=== PATIENT | male | born 1985 | race Hispanic/Latino ===

== ENCOUNTER → 2016-07-22 | Outpatient (CLI) | payer MEDICAID ==
[2016-07-26 14:11] LABS: VITAMIN B2 (RIBOFLAVIN) 240 ug/L (137-370)
== END ==
LOC: M LAB 07:29
PROVIDERS: ATTEND Nurse Practitioner Family
DX: D64.9 Anemia, unspecified (principal)

== ENCOUNTER → 2016-11-16 | Outpatient (CLI) | payer MEDICAID, OTHER | LOC: M LAB 13:07 | PROVIDERS: ATTEND Nurse Practitioner Family | DX: R76.12 Nonspecific reaction to cell mediated immunity measurement of gamma interferon antigen response without active tuberculosis (principal) ==

== ENCOUNTER → 2016-11-23 | Outpatient (CLI) | payer OTHER ==
--- NOTE | 2016-11-23 14:54 | REP ---
Clinical: Positive PPD test . Comparison: None . Technique: PA and lateral. Findings: The mediastinum and cardiac silhouette are normal. The lung pop are clear and without acute consolidation, effusion, or pneumothorax. The skeletal structures are intact and normal. Impression: 1. No acute cardiopulmonary process. Signed by Stefan Bartlett MD 11/23/2016 02:45 P
[2016-11-23 15:39] LABS: FREE T4 0.98 NG/DL (0.76-1.46)
== END ==
LOC: M LAB 13:54
PROVIDERS: ATTEND Nurse Practitioner Family
DX: R76.11 Nonspecific reaction to tuberculin skin test without active tuberculosis (principal)

== ENCOUNTER 2017-02-22 16:08 | Inpatient (IN) | payer OTHER ==
[~2017-02-22] VITALS: Ht 170.2 cm; Wt 80.9 kg
[2017-02-22] MEDS ORDERED: ONDANSETRON 4MG/2ML VIAL (J2405) IV ONE (16:45)
[2017-02-22] MEDS ORDERED: NS 1,000 ML IV ONE ×2 (16:45→20:00)
[2017-02-22] MEDS ORDERED: PANTOPRAZOLE 40MG INJ (PROTONIX) (C9113) IV ONE (16:45)
[2017-02-22] MEDS: MORPHINE 4 MG/ML 1ML SYRINGE IV PRN ×2 (16:59→17:41)
[2017-02-22 17:31] LABS: ALBUMIN 3.8 GM/DL (3.2-5.2); ALBUMIN/GLOBULIN RATIO 1.09 (1.00-1.93); ALKALINE PHOSPHATASE 127 U/L (45-117); ALT/SGPT 87 U/L (12-78); ANION GAP 28 MEQ/L (8-16); AST/SGOT 67 U/L (15-37); BILIRUBIN,DIRECT 0.2 MG/DL (0.0-0.2); BLOOD UREA NITROGEN 19 MG/DL (7-18); CALCIUM LEVEL 7.9 MG/DL (8.5-10.1); CARBON DIOXIDE LEVEL 10 MEQ/L (21-32); CHLORIDE LEVEL 97 MEQ/L (98-107); CREATININE FOR GFR 1.24 MG/DL (0.70-1.30); GLOMERULAR FILTRATION RATE > 60.0 (>60); GLUCOSE, FASTING 191 MG/DL (70-105); POTASSIUM SERUM 3.5 MEQ/L (3.5-5.1); SODIUM LEVEL 135 MEQ/L (136-145); TOTAL PROTEIN 7.3 GM/DL (6.4-8.2)
[2017-02-22 17:51] LABS: BASO # 0.1 K/mm3 (0.0-0.2); BASO % 0.2 % (0.0-1.0); EOS % 0.1 % (0.0-3.0); LARGE UNSTAINED CELL # 0.1 K/mm3 (0.0-0.4); LARGE UNSTAINED CELL % 0.3 % (0.0-4.0); LYMPH # 1.1 K/mm3 (1.5-4.5); LYMPH % 3.2 % (24.0-44.0); MEAN CORPUSCULAR HEMOGLOBIN 29.6 pg (27.0-33.0); MEAN CORPUSCULAR HGB CONC 35.3 g/dl (32.0-36.5); MEAN CORPUSCULAR VOLUME 83.9 fl (80.0-96.0); MONO # 0.9 K/mm3 (0.0-0.8); MONO % 2.7 % (0.0-5.0); NEUTROPHILS # 30.2 K/mm3 (1.8-7.7); NEUTROPHILS % 93.6 % (36.0-66.0); PLATELET COUNT, AUTOMATED 259 k/mm3 (150-450); RED CELL DISTRIBUTION WIDTH 13.1 % (11.5-14.5)
[2017-02-22 17:53] LABS: WHITE BLOOD COUNT 32.2 K/mm3 (4.0-10.0)
[2017-02-22] MEDS ORDERED: NS 1,000 ML IV SCH (18:00)
[2017-02-22] MEDS ORDERED: ISOVUE-370 76% 100ML VIAL (Q9967) As Ordered ONE (18:04)
[2017-02-22] MEDS ORDERED: LORazepam 2 MG/ML VIAL (J2060) IV STA (18:27)
[2017-02-22] MEDS ORDERED: NS 2,290 ML in APPROPRIATE DILUENT 1 EA IV ONE (18:30)
[2017-02-22] MEDS ORDERED: CEFEPIME HCL 2 GM in D5W MINI-BAG PLUS 50 ML IV ONE (18:30)
[2017-02-22 18:32] LABS: ABG BASE EXCESS -10.9 (-2.0-2.0); ABG HCO3 11.6 MEQ/L (22.0-26.0); ABG PARTIAL PRESSURE CO2 20.5 mmHg (35.0-45.0); ABG PARTIAL PRESSURE O2 111.1 mmHg (75.0-100.0); ABG STANDARD HCO3 16.2 MEQ/L (22.0-26.0); ABG TOTAL CO2 12.2 MEQ/L (22.0-29.0)
[2017-02-22] MEDS: HYDROmorphone HCL 1 MG/ML SYRINGE (J1170) IV PRN ×3 (18:34→22:35)
--- NOTE | 2017-02-22 19:11 | REP ---
REASON: Abdominal pain. Supine and cross table lateral views were obtained. There are a few gas filled mildly dilated small bowel loops in the abdomen. There is no free air seen on the single cross table lateral view. The accompanying frontal view of the chest shows no acute disease or significant change from 11/23/2016. IMPRESSION: Small bowel ileus is suspected. Signed by Jack Borjas DO 02/22/2017 07:51 P
[2017-02-22] MEDS: NS 1,000 ML IV SCH (19:14)
[2017-02-22] MEDS ORDERED: ONDANSETRON 4MG/2ML VIAL (J2405) IV PRN (19:15)
--- NOTE | 2017-02-22 19:18 | REP ---
HISTORY: Diffuse abdominal pain. COMPARISON: None. CONTRAST: 100 mL [id number]. The lung bases are clear. There is diffuse low density seen throughout the hepatic parenchyma. There is fluid in the lesser sac and in the anterior pararenal space. The margins of the pancreas are obscured. There is fluid in the paracolic gutters along with thickening of Gerota's and Zuckerkandl's fascia. There is fluid trapped in the leaves of the small bowel mesentery. The spleen, adrenal glands and kidneys are within normal limits. The abdominal aorta and paraaortic regions are within normal limits. There is no evidence of free intraperitoneal air. There are multiple fluid filled small bowel loops in the abdomen, which are dilated. CT pelvis: There is free fluid in the pelvis. There is no free air. The bowel loops are within normal limits. There is no pelvic mass or adenopathy. Bone window technique throughout the examination shows the osseous structures to be within normal limits. IMPRESSION: 1. There is pancreatitis with related findings as described above. 2. There is a small bowel ileus. 3. There is diffuse fatty infiltration of the liver. Signed by Jack Borjas DO 02/22/2017 07:51 P
[2017-02-22] MEDS ORDERED: HYDROmorphone HCL 1 MG/ML SYRINGE (J1170) IV PRN (19:30)
[2017-02-22 19:48] LABS: AMYLASE 166 U/L (25-115)
[2017-02-22 20:02] LABS: INR 1.52
[2017-02-22] MEDS: OXAZEPAM 10 MG CAP PO SCH (20:14)
--- NOTE | 2017-02-22 20:41 | ECGEPIP ---
Stationary ECG Study [facility] - ED Test Date: 2017-02-22 Pat Name: ASH MOLINA Department: Room: - Gender: M [employer] Operator: JamesB: 1985 Requested By: Davie Ramirez Order Number: [id number] Reading MD: Davie Jean-Baptiste Measurements Intervals [place] Rate: 143 P: 44 DE: 139 QRS: 116 QRSD: 85 T: 13 QT: 295 QTc: 456 Interpretive Statements SINUS TACHYCARDIA LEFT POSTERIOR FASCICULAR BLOCK NO PRIORS Electronically Signed On 02-22-2017 20:41:28 EDT by Davie Jean-Baptiste
[2017-02-22 20:45] VITALS: BP 159/93
[2017-02-22] MEDS ORDERED: SODIUM CHLORIDE 0.9% 1000 ML IV ONE (21:00)
[2017-02-22] MEDS ORDERED: MULTIVITAMIN -ADULT INJECTION 10 ML, THIAMINE INJection 100 MG, FOLIC ACID 1 MG in NS 1... IV ONE (21:00)
[2017-02-22 21:49] LABS: MAGNESIUM LEVEL 1.7 MG/DL (1.8-2.4)
--- NOTE | 2017-02-22 21:49 | HPE ---
DATE OF ADMISSION: 02/22/2017 Mr. Reed is a patient of [facility]. CHIEF COMPLAINT: "I had a relapse." The following is a summary of his presentation: This is a 31-year-old who had been absent of alcohol for at least a year and 7 months since he has been in [place]. For reasons that he cannot exactly describe, he has been on a 1 week morrissey with vodka, drinking what he calls "an ungodly amount." His last drink today was around 2 p.m. He feels tremulous and weak. He has had withdrawal before and has been hospitalized. He has no known history of seizures. His last admission for withdrawal was at [facility] in [place], [place]. He also has a history of pancreatitis and he has had severe abdominal pain which started 3 days ago and felt like he had a hole in his stomach where he was being beaten. He has had nausea, he is vomiting, he has vomited in the hospital as well, he has vomited since the CT scan. He has had chills. He feels short of breath. He feels as though there is pressure on his chest. He has had no diarrhea. He says he has not eaten anything solid in a week. PAST MEDICAL HISTORY: Notable for alcohol addiction. SURGICAL HISTORY: Notable for bilateral foot repair and right shoulder surgery after a trauma remotely. He takes no medications every day. ALLERGIES: He has no known drug allergies. FAMILY HISTORY: Unknown because he was adopted. Socially, he is originally from [place]. He has been in this area for 1 year and 7 months with 5minutes, trying to turn his life around. He does not smoke tobacco. He does not use IV drugs. REVIEW OF SYSTEMS: Notable for nausea, vomiting, chills, shortness of breath. He is not describing a cough. Abdominal pain is described. No known history of seizure. Otherwise unremarkable. PHYSICAL EXAMINATION: Temperature 98.1, pulse 114, respiratory rate 20, blood pressure 134/76, 98% on room air. Weight is 76.3 kg with a body mass index of 26.4. He is awake, appropriately interactive, appears uncomfortable and somewhat slow in his speech as he has just received some Dilaudid and Ativan. Head is normocephalic. Sinuses nontender. Pupils equal, round, and reactive, anicteric. There is scleral injection. Nasal septum is midline. Mucous membranes are moist. There is a small abrasion midline in the lower lip. Neck is supple. No cervical or supraclavicular adenopathy. Breathing is symmetrical, somewhat diminished in the bases. I:E ratio is 1:3. No costovertebral angle (CVA) tenderness. No sacral edema. Heart is distant sounding, normal S1, S2, is tachycardic on my exam with a rate between 100-110. Radial pulses are 2+. Capillary refill is less than 2 seconds. Abdomen is somewhat distended and firm, but still soft. Hypoactive bowel sounds. Diffuse tenderness without rebound or guarding. No lower extremity edema. He is moving all four extremities. He appears anxious and slightly tremulous. White cell count is 32.2, hemoglobin 18.4, and platelets of 259. Sodium 135, potassium 3.5, chloride 97, carbon dioxide 10, anion gap of 28, BUN 19, creatinine 1.24, fasting glucose 191, lactic acid 7. There are no urines available for me to review at this time. AST is 67, ALT is 87, alkaline phosphatase is 127, lipase is 1934. pH 7.37, pCO2 is 20, pO2 is 111, bicarbonate is 11. Alcohol level is 0.07. CT scan of the abdomen and pelvis as read by radiology shows pancreatitis without evidence of obvious abscess. There is no free intraperitoneal air. There is fluid noted. In review of the CT scan personally, it would appear as though there is a small area of decreased air filling on the right in the base and the stomach looks distended with fluid so a nasogastric (NG) tube will be placed. My assessment is as follows: This is a 31-year-old with recurrent alcoholic pancreatitis and alcohol withdrawal. Patient will require at least a two midnight hospital stay and close monitoring. Plan will be as follows: 1. Pancreatitis. This would appear to be recurrent alcoholic pancreatitis. My suspicion for gallstone pancreatitis is exceedingly low. His liver function tests (LFTs) are only minimally elevated. There is no evidence of obvious abscess, but there is obviously advanced pancreatitis which is recurrent on the CT scan. The patient will be made nothing by mouth and placed on IV fluids and I have started empiric antibiotics which can be discontinued if he improves or if there are no signs or symptoms of localizing infection. Choosing ceftazidime to cover a broad-spectrum of possible pathogens. Urine is still pending which will likely be unremarkable, but will likely show ketosis. 2. The patient has lactic acidosis with an anion gap. He has denied any injections. This most likely represents his ketotic and lactic acidotic state. Will repeat labs in 6 hours after hydration along with a repeat lactic acid level to look at the anion gap. 3. The patient has evidence of alcohol withdrawal and has gone through withdrawal before. Will use Serax and Ativan together in the setting of use of opiates for pain management. The patient will have an acoustic monitor placed. He does not give a history suggestive of obstructive sleep apnea, but the combination of opiates and benzodiazepines does, of course, come with some risks, but is necessary in this clinical setting. 4. The patient has mechanical deep venous thrombosis (DVT) prophylaxis ordered. 5. The patient has hyponatremia. Repeat labs in the morning. 6. The patient has ongoing alcohol addiction recurrence. Will likely benefit from further treatment as an outpatient or perhaps as an inpatient. Social work consult is ordered.
[2017-02-22 23:32] LABS: ANION GAP 13 MEQ/L (8-16); BLOOD UREA NITROGEN 16 MG/DL (7-18); CALCIUM LEVEL 6.4 MG/DL (8.5-10.1); CARBON DIOXIDE LEVEL 18 MEQ/L (21-32); CHLORIDE LEVEL 106 MEQ/L (98-107); CREATININE FOR GFR 1.07 MG/DL (0.70-1.30); GLOMERULAR FILTRATION RATE > 60.0 (>60); GLUCOSE, FASTING 149 MG/DL (70-105); POTASSIUM SERUM 4.4 MEQ/L (3.5-5.1); SODIUM LEVEL 137 MEQ/L (136-145)
[2017-02-23] VITALS (11 sets, daily range): BP systolic 127–141; BP diastolic 73–91; O2SAT 96–97
[2017-02-23] MEDS ORDERED: MAG SULF 1GM/100ML (MAG RUN) 1 GM in APPROPRIATE DILUENT 1 EA IV ONE ×2
[2017-02-23] MEDS: OXAZEPAM 10 MG CAP PO SCH ×3 (00:24→11:00)
[2017-02-23] MEDS: HEPARIN SOD (PORCINE) 5000 UNITS/ML VIAL SQ SCH ×4 (00:25→22:16)
[2017-02-23] MEDS: HYDROmorphone HCL 1 MG/ML SYRINGE (J1170) IV PRN ×5 (01:48→22:16)
[2017-02-23] MEDS: cefTAZidime 1 GM in D5W MINI-BAG PLUS 100 ML IV SCH ×3 (02:43→17:59)
[2017-02-23] MEDS: NS 1,000 ML IV SCH ×4 (02:43→23:14)
[2017-02-23 05:58] LABS: ADD MANUAL DIFFER YES; DIFF SLIDE NUMBER 93; MEAN CORPUSCULAR HEMOGLOBIN 29.7 pg (27.0-33.0); MEAN CORPUSCULAR HGB CONC 34.4 g/dl (32.0-36.5); MEAN CORPUSCULAR VOLUME 86.3 fl (80.0-96.0); RED CELL DISTRIBUTION WIDTH 13.4 % (11.5-14.5); WHITE BLOOD COUNT 23.1 K/mm3 (4.0-10.0)
[2017-02-23 06:22] LABS: ALBUMIN 2.9 GM/DL (3.2-5.2); ALBUMIN/GLOBULIN RATIO 1.07 (1.00-1.93); ALKALINE PHOSPHATASE 93 U/L (45-117); ALT/SGPT 59 U/L (12-78); ANION GAP 14 MEQ/L (8-16); AST/SGOT 50 U/L (15-37); BILIRUBIN,TOTAL 1.4 MG/DL (0.2-1.0); BLOOD UREA NITROGEN 15 MG/DL (7-18); CALCIUM LEVEL 6.7 MG/DL (8.5-10.1); CARBON DIOXIDE LEVEL 18 MEQ/L (21-32); CHLORIDE LEVEL 107 MEQ/L (98-107); CREATININE FOR GFR 0.94 MG/DL (0.70-1.30); GLOMERULAR FILTRATION RATE > 60.0 (>60); GLUCOSE, FASTING 138 MG/DL (70-105); MAGNESIUM LEVEL 2.1 MG/DL (1.8-2.4); POTASSIUM SERUM 4.2 MEQ/L (3.5-5.1); SODIUM LEVEL 139 MEQ/L (136-145); TOTAL PROTEIN 5.6 GM/DL (6.4-8.2)
[2017-02-23 06:39] LABS: BASOPHILS 1 % (0-4)
[2017-02-23 06:40] LABS: PLATELET CLUMPS MODERATE AMT
[2017-02-23] MEDS: MORPHINE 2 MG/ML 1ML SYRINGE IV PRN ×3 (07:21→17:11)
--- NOTE | 2017-02-23 07:45 | HPE ---
DATE OF ADMISSION: 02/22/2017 Time patient was seen was at roughly 2100 ours. PRIMARY CARE PROVIDER: JEREMY Millard at [facility]. CHIEF COMPLAINT: Severe abdominal pain. 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 Per the patient, he started drinking again seven days ago and relapsed on alcohol and for the past three days he has been having severe bandlike pain around the abdomen that was sharp and constant, worse with food. He stated he vomits at least 10 times a day, which was green, brown and black, and he has not been eating much for the past one week. Also admits to fever and chills today. In addition, he also admits to chest pressure that was in the center of the chest and constant, associated with shortness of breath. Per the patient, he has not had this before. Otherwise, denies any diarrhea or constipation. ALLERGIES: The patient stated he is allergic to ALCOHOL, which makes him sick. HOME MEDICATIONS: Not on any home medications. PAST MEDICAL HISTORY: Includes: Drug abuse, which the patient stated that he quit for a year. Alcoholism. He had a recent relapse. History of pancreatitis. History of TB, which was treated 10 years ago. PAST SURGICAL HISTORY: Patient had a right shoulder repair and also bilateral foot surgery. SOCIAL HISTORY: Patient denies any smoking. Admits to drinking. Denies any recreational drugs. The patient lives by himself. FAMILY HISTORY: Patient stated he is adopted and he does not know. REVIEW OF SYSTEMS: GENERAL: Denies any recent traveling or sick contacts, admits to fever and chills. Denies any weight changes. HEENT: Denies any changes with vision, smell, hearing or taste. Denies any trouble swallowing. CARDIOVASCULAR: Admits to chest pressure and shortness of breath. PULMONARY: Admits to shortness of breath. Denies any pulmonary disease. GASTROINTESTINAL (GI): Admits to severe abdominal pains with nausea and vomiting. Denies any diarrhea or constipation. Denies any blood in the vomiting. MUSCULOSKELETAL: Admits to severe aching and tired body. ENDOCRINE: Denies any heat or cold intolerance. Denies any polydipsia or polyuria. HEM/ONC: Denies any ease of bruising or any bleeding anywhere. SKIN: Denies any ulcers, lumps or bumps. NEURO: Denies any weakness on any side of his body. PSYCH: Admits to anxiety. Patient states it was severe. PHYSICAL EXAMINATION: VITAL SIGNS: Temperature 98.1, pulse 72, respirations 18, blood pressure 136/73 , oxygen was saturating at 99% on room air. GENERAL: Patient is a well-developed, well-nourished young male, who was alert, awake and oriented times three. Appears to be mildly distressed, lying comfortably in bed with head elevated at 60 degrees. HEENT: Normocephalic, atraumatic. Extraocular motors intact. Mucous moist. NECK: Supple. No neck lymphadenopathy. CARDIOVASCULAR: Tachycardic. Normal S1 and S2. No murmurs. LUNGS: Clear to auscultation bilaterally. No wheezing, rales or rhonchi. ABDOMEN: Positive bowel sounds. Soft, diffusely tender to palpation in the entire abdomen; however, no rebound tenderness, no rigidity. No ecchymosis. EXTREMITIES: No edema, clubbing or cyanosis. SKIN: Warm and dry. NEURO: Cranial nerves II through XII intact. No focal neurologic deficit. LABORATORIES: WBC 32.2, hemoglobin was 18.4, hematocrit 52.3 with a platelet count of 259 and MCV of 83.9. Sodium 135, potassium 3.5, chloride 97, bicarb 10, anion gap was 28, BUN was 19, creatinine 124, GFR greater than 60, fasting glucose 191, lactic acid was 7. Lactic acid 4 hours later was 3. Calcium 7.9, magnesium 1.7, total bilirubin 1, direct bilirubin 0.2, AST 67, ALT 87, alkaline phosphatase was 127, total CK 347 , CK-MB 2.4, Troponin less than 0.02, CRP was 5.93, total protein 7.3, albumin 3.8 , amylase 166, lipase 1934. The patient's repeat basic metabolic panel is pending. Coags shows PT of 18.7, INR 1.52, PTT 29.8. ABG shows pH of 7.37, pCO2 20.5, pO2 111, saturation was 97.6% on room air with a base excess of -10.9. Urinalysis shows 2+ protein, 2+ glucose, 1+ ketones, 1+ blood, 4+ RBC, 1+ bacteria. Toxicology shows alcohol 0.07. Hepatitis panel is pending. Blood cultures times three are pending. Urine culture is pending. The patient had an abdominal x-ray that shows a small bowel ileus suspected. Patient had a CT of the abdomen and pelvis, which shows pancreatitis related findings and a small bowel ileus. There is diffuse fatty infiltrate of the liver. ASSESSMENT/PLAN: 31-year-old male with a past medical history of pancreatitis, alcoholism, drug abuse, history of treated TB who presented with: 1. Severe abdominal pain with nausea and vomiting, likely secondary to recurrent alcohol related pancreatitis. However, the patient does have an elevated white count of 32.2, likely related to his severe nausea and vomiting. Will place the patient on NG tube to low intermittent suction and nothing by mouth, IV fluids. Patient has been ordered 4 liters of normal saline including a banana bag and will continue the patient on normal saline at a rate of 150 mL per hour. Will continue to trend the patient's lipase and trend the patient's lactic acid and start on empiric antibiotics with ceftazidime 1 gram IV every 8 hours for now and will adjust the antibiotic according to culture. Continue to monitor for signs of alcohol withdraw and Continue Serax prn for withdraw symptoms. 2. Small bowel ileus shown on CT, likely related to pancreatitis. Will continue to monitor. Continue nothing by mouth. 3. Fatty infiltrate of the liver. Likely related to alcoholism. At this point , I will continue to monitor. Will obtain hepatitis panel. The patient's INR does appear to be elevated at 1.5. 4. Prerenal azotemia with a creatinine of 1.24. Continue IV fluids. 5. Severe abdominal pain. Will continue as needed Dilaudid. 6. History of TB that was treated 10 years ago. No coughing currently. Stable. 7. History of drug abuse. Continue to monitor. The patient stated he quit one year ago. 8. Deep vein thrombosis (DVT) prophylaxis with heparin 5000 units subcutaneously every 8 hours. 9. Fluid, electrolyte and nutrition. Patient is on a normal saline at a rate of 150 mL per hour. His magnesium was repleted. He is currently nothing by mouth. Will consider adding D5 into the patient's normal saline fluid once the patient is better controlled. Currently, the patient seems to have hyperglycemia as well. DISPOSITION: Patient has severe alcohol induced pancreatitis. Continue aggressive IV fluid rehydration. Continue empiric antibiotics. Followup with cultures. Continue nothing by mouth. Will replete electrolytes as needed. Patient has been discussed with attending doctor, Dr. Romeo. I have both independently examined this patient as well as reviewed the dictated note. I have discussed in detail with the resident the findings and plan of treatment as documented in the residents note. I will continue to follow the patient and offer further guidance to the patients care as necessary during this hospital stay. ANGELICA
[2017-02-23] MEDS: KETOROLAC 30 MG/ML VIAL (J1885) IV PRN ×2 (09:35→19:17)
[2017-02-23] MEDS: LORazepam 2 MG/ML VIAL (J2060) IV PRN ×3 (09:44→20:42)
--- NOTE | 2017-02-23 13:32 | IPN ---
DATE OF SERVICE: 02/23/2017 A 31-year-old gentleman seen at bedside complaining of epigastric pain, nausea, some agitation with known history of alcohol withdrawal and was admitted for pancreatitis. OBJECTIVE: Temperature is 97.2, pulse 110, respiratory rate 23, blood pressure (BP) 131/86, SPO2 is 99% on room air. General: The patient appears to be in no acute distress, alert, oriented. HEENT: Unremarkable. Lungs: Clear. Heart: Regular rate and rhythm. Abdomen: Epigastric tenderness. Positive bowel sounds. Does appear to be somewhat distended but no rebound tenderness. LABORATORY DATA: White count is 23,000 down from 32, hemoglobin is 14.5 down from 18.4 (this likely was initially due to hemoconcentration), platelets are 13.4. Sodium 139, potassium 4.2, chloride 107, bicarbonate 18, anion gap 14, BUN is 15, creatinine 0.94, glucose is 138. His lactic acid repeat is 0.7 today. Magnesium 2.1, total bilirubin 1.4, AST 50, ALT 59, alkaline phosphatase 93, CRP is 16.9. Lipase is 862, down from 1934. IMPRESSION: 1. Acute pancreatitis. The patient continues with pain medication, intravenous (IV) fluids, and nothing by mouth. I did add on some Toradol to see if this would help out with his abdominal pain. Continue with IV fluids. 2. Alcohol withdrawal with anxiety. Continue on Serax and IV Ativan for breakthrough anxiety. Will continue also with supplemental folic acid, thiamine, and multivitamins. 3. Leukocytosis, likely reactive. However, the patient continues on empiric ceftazidime and await culture results. However, his leukocytosis does appear to be trending downward. 4. Elevated hemoglobin and hematocrit, likely secondary to hemoconcentration. This does appear to be improving with IV fluids, as well as his lactic acid. 5. Fatty infiltrate of the liver, likely related to alcohol. International normalized ratio (INR) was 1.52. He does not show any signs of bleeding. Total bilirubin was 1.41. Keep an eye on this. 6. Mild acute kidney injury. Creatinine is improving with IV fluids. 7. Prior history of tuberculosis (TB), treated 10 years ago. No current issues. 8. History of drug use. The patient states he no longer uses. 9. Deep venous thrombosis (DVT) prophylaxis with subcutaneous heparin. DISPOSITION: The patient does continue to be acutely ill with a guarded prognosis with the level of pancreatitis and alcohol withdrawal. Will leave him on telemetry and follow him closely.
[2017-02-23] MEDS: OXAZEPAM 10 MG CAP PO PRN ×2 (17:11→23:13)
[2017-02-24] VITALS (12 sets, daily range): BP systolic 128–177; BP diastolic 66–94; O2SAT 95–98
[2017-02-24] MEDS: MORPHINE 2 MG/ML 1ML SYRINGE IV PRN ×3 (00:03→15:13)
[2017-02-24] MEDS: KETOROLAC 30 MG/ML VIAL (J1885) IV PRN ×4 (00:03→18:09)
[2017-02-24] MEDS: HYDROmorphone HCL 1 MG/ML SYRINGE (J1170) IV PRN ×6 (01:51→22:40)
[2017-02-24] MEDS: LORazepam 2 MG/ML VIAL (J2060) IV PRN ×3 (03:16→22:38)
[2017-02-24] MEDS: cefTAZidime 1 GM in D5W MINI-BAG PLUS 100 ML IV SCH ×3 (03:17→18:04)
[2017-02-24] MEDS: HEPARIN SOD (PORCINE) 5000 UNITS/ML VIAL SQ SCH ×3 (05:23→22:37)
[2017-02-24] MEDS: NS 1,000 ML IV SCH ×3 (06:04→20:43)
[2017-02-24 06:12] LABS: BASO % 0.2 % (0.0-1.0); EOS % 0.2 % (0.0-3.0); LARGE UNSTAINED CELL # 0.2 K/mm3 (0.0-0.4); LARGE UNSTAINED CELL % 1.6 % (0.0-4.0); LYMPH # 2.2 K/mm3 (1.5-4.5); LYMPH % 17.7 % (24.0-44.0); MEAN CORPUSCULAR HGB CONC 35.2 g/dl (32.0-36.5); MEAN CORPUSCULAR VOLUME 85.2 fl (80.0-96.0); MONO # 0.5 K/mm3 (0.0-0.8); MONO % 4.7 % (0.0-5.0); NEUTROPHILS # 8.8 K/mm3 (1.8-7.7); NEUTROPHILS % 75.6 % (36.0-66.0); PLATELET COUNT, AUTOMATED 134 k/mm3 (150-450); RED CELL DISTRIBUTION WIDTH 13.1 % (11.5-14.5); WHITE BLOOD COUNT 11.6 K/mm3 (4.0-10.0)
[2017-02-24] MEDS: OXAZEPAM 10 MG CAP PO PRN ×2 (06:22→13:20)
[2017-02-24 06:23] LABS: ALBUMIN 2.7 GM/DL (3.2-5.2); ALBUMIN/GLOBULIN RATIO 0.71 (1.00-1.93); ALKALINE PHOSPHATASE 97 U/L (45-117); ALT/SGPT 49 U/L (12-78); ANION GAP 13 MEQ/L (8-16); AST/SGOT 42 U/L (15-37); BILIRUBIN,TOTAL 0.9 MG/DL (0.2-1.0); BLOOD UREA NITROGEN 9 MG/DL (7-18); CALCIUM LEVEL 7.6 MG/DL (8.5-10.1); CARBON DIOXIDE LEVEL 22 MEQ/L (21-32); CHLORIDE LEVEL 104 MEQ/L (98-107); CREATININE FOR GFR 0.69 MG/DL (0.70-1.30); GLOMERULAR FILTRATION RATE > 60.0 (>60); GLUCOSE, FASTING 78 MG/DL (70-105); MAGNESIUM LEVEL 2.5 MG/DL (1.8-2.4); POTASSIUM SERUM 3.1 MEQ/L (3.5-5.1); SODIUM LEVEL 139 MEQ/L (136-145); TOTAL PROTEIN 6.5 GM/DL (6.4-8.2)
[2017-02-24] MEDS ORDERED: POTASSIUM CHLORIDE 10 MEQ SR TABLET PO ONE (07:00)
[2017-02-25] VITALS (7 sets, daily range): BP systolic 87–143; BP diastolic 50–91
[2017-02-25] MEDS: KETOROLAC 30 MG/ML VIAL (J1885) IV PRN ×4 (00:18→21:01)
[2017-02-25] MEDS: HYDROmorphone HCL 1 MG/ML SYRINGE (J1170) IV PRN ×7 (01:47→23:53)
[2017-02-25] MEDS: NS 1,000 ML IV SCH ×4 (03:48→21:35)
[2017-02-25] MEDS: cefTAZidime 1 GM in D5W MINI-BAG PLUS 100 ML IV SCH ×2 (03:48→11:25)
[2017-02-25] MEDS: HEPARIN SOD (PORCINE) 5000 UNITS/ML VIAL SQ SCH ×3 (05:36→21:59)
[2017-02-25 05:59] LABS: BASO % 0.4 % (0.0-1.0); EOS # 0.1 K/mm3 (0.0-0.50); EOS % 0.9 % (0.0-3.0); LARGE UNSTAINED CELL # 0.2 K/mm3 (0.0-0.4); LARGE UNSTAINED CELL % 1.9 % (0.0-4.0); LYMPH # 2.3 K/mm3 (1.5-4.5); LYMPH % 20.8 % (24.0-44.0); MEAN CORPUSCULAR HEMOGLOBIN 29.8 pg (27.0-33.0); MEAN CORPUSCULAR HGB CONC 34.4 g/dl (32.0-36.5); MEAN CORPUSCULAR VOLUME 86.8 fl (80.0-96.0); MONO # 0.5 K/mm3 (0.0-0.8); MONO % 4.7 % (0.0-5.0); NEUTROPHILS # 7.2 K/mm3 (1.8-7.7); NEUTROPHILS % 71.2 % (36.0-66.0); PLATELET COUNT, AUTOMATED 166 k/mm3 (150-450); RED CELL DISTRIBUTION WIDTH 13.1 % (11.5-14.5); WHITE BLOOD COUNT 10.1 K/mm3 (4.0-10.0)
[2017-02-25 06:24] LABS: ALBUMIN 2.8 GM/DL (3.2-5.2); ALBUMIN/GLOBULIN RATIO 0.65 (1.00-1.93); ALKALINE PHOSPHATASE 108 U/L (45-117); ALT/SGPT 44 U/L (12-78); ANION GAP 15 MEQ/L (8-16); AST/SGOT 35 U/L (15-37); BILIRUBIN,TOTAL 0.9 MG/DL (0.2-1.0); BLOOD UREA NITROGEN 8 MG/DL (7-18); CALCIUM LEVEL 8.1 MG/DL (8.5-10.1); CARBON DIOXIDE LEVEL 20 MEQ/L (21-32); CHLORIDE LEVEL 103 MEQ/L (98-107); GLOMERULAR FILTRATION RATE > 60.0 (>60); GLUCOSE, FASTING 74 MG/DL (70-105); MAGNESIUM LEVEL 2.3 MG/DL (1.8-2.4); POTASSIUM SERUM 3.1 MEQ/L (3.5-5.1); SODIUM LEVEL 138 MEQ/L (136-145); TOTAL PROTEIN 7.1 GM/DL (6.4-8.2)
[2017-02-25] MEDS: SENOKOT S TAB PO SCH ×2 (08:16→21:00)
[2017-02-25] MEDS ORDERED: POTASSIUM CHLORIDE 10 MEQ SR TABLET PO ONE ×2 (09:00→09:30)
[2017-02-25] MEDS ORDERED: MOM 30ML SUSPENSION UDC PO SCH (09:00)
[2017-02-25] MEDS: OXAZEPAM 15 MG CAP PO SCH ×3 (11:25→23:52)
--- NOTE | 2017-02-25 12:47 | REP ---
Abdominal series: Four views. History: Abdominal pain. Comparison study: February 22, 2017. Findings: EKG monitoring electrodes overlie the chest. The lungs are exposed at a relatively low inspiratory level. There is discoid atelectasis in the right perihilar region. Lung pop are otherwise clear. No free subdiaphragmatic air is seen. Supine and erect views of the abdomen show air and some stool in a nondistended colon proximally and distally. No small bowel dilation is seen. Bowel gas pattern is unremarkable. Flank stripes are intact. Psoas margins are symmetric. Impression: Right perihilar plate-like atelectasis. Otherwise negative abdominal series. Signed by Omar Pride MD 02/25/2017 12:52 P
--- NOTE | 2017-02-25 15:23 | IPNPDOC ---
Text Note Date of Service The patient was seen on 02/24/17. NOTE Subjective: Patient seen and examined at bedside. Denies passing flatus or having BM. Denies chest pain, SOB, nausea, vomiting, diarrhea, dysuria, hematuria. Admits to constipation. Objective: Please see PE and VS below. VS significant for tachycardia of 114, 122. Laboratory data: Remarkable for Mg 2.5, Hgb 12.3 from 14.5, WBC of 11.6 from 23.1, K of 3.1, AST of 42 from 50, albumin of 2.7 from 2.9, lipase of 391 from 862. Hepatitis A, B, and C testing has been negative. Microbiology: Blood cx show NGTD. Urine cx are pending. Imaging: Abdominal X-ray: small bowel ileus CT abdomen/pelvis: pancreatitis, small bowel ileus, diffuse fatty infiltrate of the liver Assessment/Plan: 31 yo M is presenting for acute alcoholic pancreatitis, small bowel ileus, and fatty infiltrate of the liver likely related to EtOH. Has leukocytosis, mild CLARISSA. Acute pancreatitis: continue pain control for abdominal pain with morphine, dilaudid, and toradol. Continue IVF. Will plan to clamp NG tube later today and try clear liquids this afternoon. If does not tolerate, will keep NPO. Small Bowel Ileus: Will clamp NG tube later today and try clears. If patient does not tolerate, will continue with NG tube and NPO. If tolerates this, may remove NG tube. In addition, encourage OOB with ambulation. Monitor for passage of flatus and BMs. Will start senokot S and see if this may help. Hypokalemia: K of 3.1 today. Was repleted. Continue to monitor daily CMPs. Alcohol withdrawal with Anxiety: continue serax and ativan for breakthrough anxiety, supplemental folic acid, thiamine, and multivitamins. Leukocytosis: may be reactive and stress demargination. Continue empiric antibiotics for now with ceftazidime. Will follow up results of blood and urine cx when available. WBC is trending down. Hemoconcentration with elevated Hgb & Hct: may be due to dehydration and NPO status. Will continue to monitor and continue IVF to dilute. Lactic Acidosis: Improved. Lactic acid 0.7 from 7. Continue IVF. Fatty Liver Infiltrate: likely related to EtOH. LFTs improved and showed AST to be 42 from 50. Total bilirubin went down from 1.4 to 0.9. INR is 1.52. No active signs of bleeding. Continue to monitor. Mild CLARISSA: Creatinine has improved with IVF. Prior Tuberculosis Hx treated 10 years ago: Not symptomatic. Continue to monitor if this changes. History of drug use: Denies substance abuse currently. DVT prophylaxis: SC heparin Immunizations as per protocol DISPOSITION: Guarded prognosis with level of pancreatitis and alcohol withdrawal. Continue to closely monitor on Telemetry. My preceptor for this patient encounter was Dr. Saulo Rankin, and was physically present in the building during the encounter and was fully available. As needed, all aspects of the patient interview, examination, medical decision making process, and medical care plan development were reviewed and approved by the preceptor. Preceptor is aware and concurs with the plan as stated in the body of this note and will attest to such by his/her cosignature. VS,Fishbone, I+O VS, Fishbone, I+O Laboratory Tests 02/24/17 05:42 Red Blood Count 4.08 L, Mean Corpuscular Volume 85.2, Mean Corpuscular Hemoglobin 30.0, Mean Corpuscular Hemoglobin Concent 35.2, Red Cell Distribution Width 13.1, Neutrophils (%) (Auto) 75.6 H, Lymphocytes (%) (Auto) 17.7 L, Monocytes (%) (Auto) 4.7, Eosinophils (%) (Auto) 0.2, Basophils (%) ( Auto) 0.2, Neutrophils # (Auto) 8.8 H, Lymphocytes # (Auto) 2.2, Monocytes # ( Auto) 0.5, Eosinophils # (Auto) 0.0, Basophils # (Auto) 0.0, Calcium Level 7.6 L , Aspartate Amino Transf (AST/SGOT) 42 H, Alanine Aminotransferase (ALT/SGPT) 49 , Alkaline Phosphatase 97, Total Bilirubin 0.9, Total Protein 6.5, Albumin 2.7 L Vital Signs Date Time Temp Pulse Resp B/P (MAP) Pulse Ox O2 Delivery O2 Flow Rate FiO2 02/24/17 17:00 98 Room Air 02/24/17 16:00 98.3 123 20 154/66 (95) I&O- Last 24 Hours up to 6 AM 02/24/17 06:00 Intake Total 3700 ml Output Total 3650 ml Balance 50 ml Physical Examination Physical Examination Vital Signs/I&O Vital Signs Date Time Temp Pulse Resp B/P (MAP) Pulse Ox O2 Delivery O2 Flow Rate FiO2 02/25/17 14:38 20 02/25/17 11:36 Room Air 02/25/17 08:00 97.9 102 139/78 (98) 97 02/25/17 04:00 I&O- Last 24 Hours up to 6 AM 02/25/17 05:59 Intake Total 3230 ml Output Total 5750 ml Balance -2520 ml General Exam: Positive: alert, attentive, talkative, cooperative, oriented times three ENT EXAM: Positive: normocephalic, atraumatic Neck Exam: Positive: Supple, Negative: Lymphadenopathy, Thyromegaly Chest Exam: Positive: Clear to auscultation, Negative: Wheezing, Rales, Rhonchi Heart Exam: Positive: Normal S1, S2, Tachycardic, Negative: Murmurs Abdominal Exam: Positive: Normal bowel sounds, Other (+generalized tenderness to palpation of abdomen. Somewhat distended and not very soft. ), Negative: Hepatospenomegaly Extremity Exam: Positive: Normal pulses, Negative: Clubbing, Cyanosis, Edema Skin Exam: Positive: Warm, Dry, Negative: Rashes Neuro Exam: Positive: Normal Speech Psych Exam: Positive: Mental status NL, Anxiety (moderate), Memory Intact, Alert and oriented x 3 Laboratory Data Labs 24H Laboratory Tests 2 02/25/17 05:35: White Blood Count 10.1H, Red Blood Count 4.06L, Hemoglobin 12.1L, Hematocrit 35.3L, Mean Corpuscular Volume 86.8, Mean Corpuscular Hemoglobin 29.8, Mean Corpuscular Hemoglobin Concent 34.4, Red Cell Distribution Width 13.1, Platelet Count 166, Neutrophils (%) (Auto) 71.2H, Lymphocytes (%) (Auto) 20.8L, Monocytes (%) (Auto) 4.7, Eosinophils (%) (Auto) 0.9, Basophils (%) (Auto) 0.4, Neutrophils # (Auto) 7.2, Lymphocytes # (Auto) 2.3, Monocytes # (Auto) 0.5, Eosinophils # (Auto) 0.1, Basophils # (Auto) 0.0, Large Unclassified Cells % 1.9 , Large Unclassified Cells # 0.2, Anion Gap 15, Glomerular Filtration Rate > 60.0, Blood Urea Nitrogen 8, Creatinine 0.60L, Sodium Level 138, Potassium Level 3.1L, Chloride Level 103, Carbon Dioxide Level 20L, Calcium Level 8.1L, Aspartate Amino Transf (AST/SGOT) 35, Alanine Aminotransferase (ALT/SGPT) 44, Alkaline Phosphatase 108, Total Bilirubin 0.9, Total Protein 7.1, Albumin 2.8L, Magnesium Level 2.3, Albumin/Globulin Ratio 0.65L, Lipase 328 CBC/BMP Laboratory Tests 02/25/17 05:35 Red Blood Count 4.06 L, Mean Corpuscular Volume 86.8, Mean Corpuscular Hemoglobin 29.8, Mean Corpuscular Hemoglobin Concent 34.4, Red Cell Distribution Width 13.1, Neutrophils (%) (Auto) 71.2 H, Lymphocytes (%) (Auto) 20.8 L, Monocytes (%) (Auto) 4.7, Eosinophils (%) (Auto) 0.9, Basophils (%) ( Auto) 0.4, Neutrophils # (Auto) 7.2, Lymphocytes # (Auto) 2.3, Monocytes # (Auto ) 0.5, Eosinophils # (Auto) 0.1, Basophils # (Auto) 0.0, Calcium Level 8.1 L, Aspartate Amino Transf (AST/SGOT) 35, Alanine Aminotransferase (ALT/SGPT) 44, Alkaline Phosphatase 108, Total Bilirubin 0.9, Total Protein 7.1, Albumin 2.8 L Microbiology Microbiology 02/22/17 Blood Culture - Preliminary, Resulted No Growth after 48 hours. All Specime... 02/22/17 Blood Culture - Preliminary, Resulted No Growth after 48 hours. All Specime... 02/22/17 Urine Culture - Final, Complete MARIA DE JESUS DONAHUE OGME-1 Feb 24, 2017 19:37
[2017-02-25] MEDS: MORPHINE 2 MG/ML 1ML SYRINGE IV PRN ×2 (17:17→19:45)
--- NOTE | 2017-02-25 18:10 | IPNPDOC ---
Text Note Date of Service The patient was seen on 02/25/17. NOTE Subjective: Patient seen and examined at bedside. Admits to passing flatus last night. Denies having BM. Denies fevers, chest pain, SOB, nausea, vomiting, diarrhea, dysuria, hematuria. Admits to constipation and 8/10 abdominal pain currently but this fluctuates. Admits to headache and chills. In addition, patient is very anxious and would like to know what day or timeframe his condition will resolve and when he will be able to get back to work. 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 He may lose his job off the books and get replaced if he cannot return soon. Objective: Please see PE and VS below. Telemetry significant for tachycardia with pulse in the 150s, 161 yesterday. Afebrile, tachycardic in the 100s. RR was also high at 35 at 4:30 AM. Laboratory data: Remarkable for Hgb of 12.1 from 12.3, WBC of 10.1 from 11.6. Glucose of 166 from 134, K of 3.1, CO2 of 20, Lipase of 328 from 391. Hepatitis A, B, and C testing has been negative. Please see below for full labs. Microbiology: Blood cx show NGTD. Urine cx showed no growth. Imaging: Abdominal Flat Plate X-ray today: The lungs are exposed at a relatively low inspiratory level. There is discoid atelectasis in the right perihilar region. Lung pop are otherwise clear. No free subdiaphragmatic air is seen. Supine and erect views of the abdomen show air and some stool in a nondistended colon proximally and distally. No small bowel dilation is seen. Bowel gas pattern is unremarkable. Flank stripes are intact. Psoas margins are symmetric. Assessment/Plan: 31 yo M is presenting for acute alcoholic pancreatitis, small bowel ileus, and fatty infiltrate of the liver likely related to EtOH. Has leukocytosis, mild CLARISSA. Acute pancreatitis: Abdomen a bit distended and glass cut off tender to palpation. Patient c/o of 8/10 pain. Continue pain control for abdominal pain with morphine , dilaudid, and toradol. Continue NS @ 150 mLs/hr IVF. NG tube discontinued yesterday. Keep NPO with sips and chips allowed. Small Bowel Ileus: NG discontinued. Continue NPO diet with sips and chips for now. Patient admitted to passage of flatus last night, but no BM. In addition, encourage OOB with ambulation. Monitor for passage of flatus and BMs. Continue senokot S. Hypokalemia: K of 3.1 today. Was repleted. Continue to monitor daily CMPs. Alcohol withdrawal with Anxiety: continue serax and ativan for breakthrough anxiety, supplemental folic acid, thiamine, and multivitamins. Leukocytosis: may be reactive and stress demargination. Continue empiric antibiotics for now with ceftazidime. Will follow up results of blood and urine cx when available. WBC is trending down. Hemoconcentration with elevated Hgb & Hct: may be due to dehydration and NPO status. Will continue to monitor and continue IVF to dilute. Lactic Acidosis: Improved. Lactic acid 0.7 from 7. Continue IVF. Fatty Liver Infiltrate: likely related to EtOH. LFTs improved and are WNL now. Total bilirubin is 0.9. INR is 1.52. No active signs of bleeding. Continue to monitor. Mild CLARISSA: Creatinine has improved with IVF. Prior Tuberculosis Hx treated 10 years ago: Not symptomatic. Continue to monitor if this changes. History of drug use: Denies substance abuse currently. DVT prophylaxis: SC heparin Immunizations as per protocol DISPOSITION: Guarded prognosis with level of pancreatitis and alcohol withdrawal. Continue to closely monitor on Telemetry. My preceptor for this patient encounter was Dr. Saulo Rankin, and was physically present in the building during the encounter and was fully available. As needed, all aspects of the patient interview, examination, medical decision making process, and medical care plan development were reviewed and approved by the preceptor. Preceptor is aware and concurs with the plan as stated in the body of this note and will attest to such by his/her cosignature. VS,Fishbone, I+O VS, Fishbone, I+O Laboratory Tests 02/25/17 05:35 Red Blood Count 4.06 L, Mean Corpuscular Volume 86.8, Mean Corpuscular Hemoglobin 29.8, Mean Corpuscular Hemoglobin Concent 34.4, Red Cell Distribution Width 13.1, Neutrophils (%) (Auto) 71.2 H, Lymphocytes (%) (Auto) 20.8 L, Monocytes (%) (Auto) 4.7, Eosinophils (%) (Auto) 0.9, Basophils (%) ( Auto) 0.4, Neutrophils # (Auto) 7.2, Lymphocytes # (Auto) 2.3, Monocytes # (Auto ) 0.5, Eosinophils # (Auto) 0.1, Basophils # (Auto) 0.0, Calcium Level 8.1 L, Aspartate Amino Transf (AST/SGOT) 35, Alanine Aminotransferase (ALT/SGPT) 44, Alkaline Phosphatase 108, Total Bilirubin 0.9, Total Protein 7.1, Albumin 2.8 L Vital Signs Date Time Temp Pulse Resp B/P (MAP) Pulse Ox O2 Delivery O2 Flow Rate FiO2 02/25/17 11:36 16 Room Air 02/25/17 08:00 97.9 102 139/78 (98) 97 02/25/17 04:00 I&O- Last 24 Hours up to 6 AM 02/25/17 06:00 Intake Total 4280 ml Output Total 5050 ml Balance -770 ml Physical Examination Physical Examination Vital Signs/I&O Vital Signs Date Time Temp Pulse Resp B/P (MAP) Pulse Ox O2 Delivery O2 Flow Rate FiO2 02/25/17 14:38 20 02/25/17 11:36 Room Air 02/25/17 08:00 97.9 102 139/78 (98) 97 02/25/17 04:00 I&O- Last 24 Hours up to 6 AM 02/25/17 05:59 Intake Total 3230 ml Output Total 5750 ml Balance -2520 ml General Exam: Positive: alert, attentive, talkative, cooperative, oriented times three ENT EXAM: Positive: normocephalic, atraumatic Neck Exam: Positive: Supple Chest Exam: Positive: Clear to auscultation, Negative: Wheezing, Rales, Rhonchi Heart Exam: Positive: Normal S1, S2, Tachycardic, Negative: Murmurs Abdominal Exam: Positive: Normal bowel sounds, Other (+tenderness to palpation of lower abdomen more than upper abdomen. Distended. ), Negative: Hepatospenomegaly Extremity Exam: Negative: Edema Skin Exam: Negative: Rashes Neuro Exam: Positive: Normal Speech Psych Exam: Positive: Mental status NL, Anxiety (moderate, is very anxious), Memory Intact, Alert and oriented x 3 Laboratory Data Labs 24H Laboratory Tests 2 02/25/17 05:35: White Blood Count 10.1H, Red Blood Count 4.06L, Hemoglobin 12.1L, Hematocrit 35.3L, Mean Corpuscular Volume 86.8, Mean Corpuscular Hemoglobin 29.8, Mean Corpuscular Hemoglobin Concent 34.4, Red Cell Distribution Width 13.1, Platelet Count 166, Neutrophils (%) (Auto) 71.2H, Lymphocytes (%) (Auto) 20.8L, Monocytes (%) (Auto) 4.7, Eosinophils (%) (Auto) 0.9, Basophils (%) (Auto) 0.4, Neutrophils # (Auto) 7.2, Lymphocytes # (Auto) 2.3, Monocytes # (Auto) 0.5, Eosinophils # (Auto) 0.1, Basophils # (Auto) 0.0, Large Unclassified Cells % 1.9 , Large Unclassified Cells # 0.2, Anion Gap 15, Glomerular Filtration Rate > 60.0, Blood Urea Nitrogen 8, Creatinine 0.60L, Sodium Level 138, Potassium Level 3.1L, Chloride Level 103, Carbon Dioxide Level 20L, Calcium Level 8.1L, Aspartate Amino Transf (AST/SGOT) 35, Alanine Aminotransferase (ALT/SGPT) 44, Alkaline Phosphatase 108, Total Bilirubin 0.9, Total Protein 7.1, Albumin 2.8L, Magnesium Level 2.3, Albumin/Globulin Ratio 0.65L, Lipase 328 CBC/BMP Laboratory Tests 02/25/17 05:35 Red Blood Count 4.06 L, Mean Corpuscular Volume 86.8, Mean Corpuscular Hemoglobin 29.8, Mean Corpuscular Hemoglobin Concent 34.4, Red Cell Distribution Width 13.1, Neutrophils (%) (Auto) 71.2 H, Lymphocytes (%) (Auto) 20.8 L, Monocytes (%) (Auto) 4.7, Eosinophils (%) (Auto) 0.9, Basophils (%) ( Auto) 0.4, Neutrophils # (Auto) 7.2, Lymphocytes # (Auto) 2.3, Monocytes # (Auto ) 0.5, Eosinophils # (Auto) 0.1, Basophils # (Auto) 0.0, Calcium Level 8.1 L, Aspartate Amino Transf (AST/SGOT) 35, Alanine Aminotransferase (ALT/SGPT) 44, Alkaline Phosphatase 108, Total Bilirubin 0.9, Total Protein 7.1, Albumin 2.8 L Microbiology Microbiology 02/22/17 Blood Culture - Preliminary, Resulted No Growth after 48 hours. All Specime... 02/22/17 Blood Culture - Preliminary, Resulted No Growth after 48 hours. All Specime... 02/22/17 Urine Culture - Final, Complete MARIA DE JESUS DONAHUE OGME-1 Feb 25, 2017 14:09
[2017-02-25] MEDS: LORazepam 2 MG/ML VIAL (J2060) IV PRN (21:01)
[2017-02-26] MEDS: NS 1,000 ML IV SCH (04:12)
[2017-02-26] MEDS: HYDROmorphone HCL 1 MG/ML SYRINGE (J1170) IV PRN (04:12)
[2017-02-26] MEDS: HEPARIN SOD (PORCINE) 5000 UNITS/ML VIAL SQ SCH (05:10)
[2017-02-26] MEDS: OXAZEPAM 15 MG CAP PO SCH (05:14)
[2017-02-26 06:00] VITALS: BP 143/89
[2017-02-26 06:38] LABS: BASO % 0.5 % (0.0-1.0); EOS # 0.2 K/mm3 (0.0-0.50); EOS % 2.1 % (0.0-3.0); LARGE UNSTAINED CELL # 0.3 K/mm3 (0.0-0.4); LARGE UNSTAINED CELL % 3.9 % (0.0-4.0); LYMPH % 25.1 % (24.0-44.0); MEAN CORPUSCULAR HGB CONC 34.6 g/dl (32.0-36.5); MEAN CORPUSCULAR VOLUME 86.8 fl (80.0-96.0); MONO # 0.6 K/mm3 (0.0-0.8); MONO % 7.1 % (0.0-5.0); NEUTROPHILS # 4.8 K/mm3 (1.8-7.7); NEUTROPHILS % 61.3 % (36.0-66.0); PLATELET COUNT, AUTOMATED 215 k/mm3 (150-450); RED CELL DISTRIBUTION WIDTH 13.3 % (11.5-14.5); WHITE BLOOD COUNT 7.8 K/mm3 (4.0-10.0)
[2017-02-26 06:51] LABS: ALBUMIN 2.9 GM/DL (3.2-5.2); ALBUMIN/GLOBULIN RATIO 0.67 (1.00-1.93); ALKALINE PHOSPHATASE 109 U/L (45-117); ALT/SGPT 41 U/L (12-78); ANION GAP 11 MEQ/L (8-16); AST/SGOT 33 U/L (15-37); BILIRUBIN,TOTAL 0.6 MG/DL (0.2-1.0); BLOOD UREA NITROGEN 7 MG/DL (7-18); CALCIUM LEVEL 8.1 MG/DL (8.5-10.1); CARBON DIOXIDE LEVEL 22 MEQ/L (21-32); CHLORIDE LEVEL 106 MEQ/L (98-107); CREATININE FOR GFR 0.66 MG/DL (0.70-1.30); GLOMERULAR FILTRATION RATE > 60.0 (>60); GLUCOSE, FASTING 120 MG/DL (70-105); MAGNESIUM LEVEL 2.4 MG/DL (1.8-2.4); POTASSIUM SERUM 3.3 MEQ/L (3.5-5.1); SODIUM LEVEL 139 MEQ/L (136-145); TOTAL PROTEIN 7.2 GM/DL (6.4-8.2)
[2017-02-26] MEDS ORDERED: POTASSIUM CHLORIDE 10 MEQ SR TABLET PO ONE (08:30)
--- NOTE | 2017-03-17 20:48 | DS.PDOC ---
Discharge Summary General Date of Admission Feb 22, 2017 at 19:14 Date of Discharge 02/26/17 Primary Care Physician: Fernanda Serrato [employer] Attending Physician: CECILLE GUZMAN DO Discharge Summary Consults: None Discharge diagnosis: Alcoholic Pancreatitis Alcohol Addiction Recurrence Alcohol Withdrawal with Anxiety Small Bowel Ileus Fatty Infiltrate of the Liver likely related to EtOH Leukocytosis Mild Acute Kidney Injury Lactic Acidosis Hypokalemia Hemoconcentration with elevated hemoglobin & hematocrit: likely secondary to dehydration Secondary diagnosis: Prior hx of Tuberculosis treated 10 years ago: patient asymptomatic Hx of Drug Use Hospital course: 31 yo M presented to [facility] ED on 02/22/17 for an acute episode of alcoholic pancreatitis and alcoholic withdrawal. After apparently stating that he was 1 year and 7 months free of alcohol use, he admitted to drinking excessive vodka for 1 week while in [place]. When he came to the hospital, he felt tremulous and weak. Patient was suffering from 3 days of severe abdominal pain prior to presentation, as well as nausea, vomiting, and chills. He also felt SOB and admitted to pressure on his chest. Upon admission, patient had a WBC of 32.2, Hgb of 19.4, Hct of 52.3, lactic acid of 7, sodium 135, CO2 of 10, anion gap of 28, BUN of 19, Cr 1.24, glucose of 191, phosphorus of 5, Mg of 1.7, AST 67, ALT 87, alk phos of 127, total creatinine kinase of 347, CRP of 5.93, amylase of 166 , and lipase of 1934. ABG had shown: pH 7.370, pCO2 of 20.5, pO2 of 111.1. UA had shown: 2+ protein, 2+glucose, 1+ ketones, 1+ blood, 4 RBCs, 1+ bacteria. Ethyl alcohol level was 0.070. In addition, labs throughout hospitalization had shown: hepatitis profile was negative for hepatitis A, B, and C. Troponin I was negative x 2. Blood cx showed were negative x 2. Urine cx had shown no growth. Imaging: Abdomen Flat/Upright PA Chest X-ray had shown 02/22: A few gas filled mildly dilated small bowel loops in the abdomen. There is no free air seen on the single cross table lateral view. The accompanying frontal view of the chest shows no acute disease or significant change from 11/23/2016. CT of the abdomen/pelvis with IV contrast only 02/22: Had shown findings consistent with pancreatitis without evidence of abscess, no free intraperitoneal air, a small bowel ileus, and diffuse fatty infiltration of the liver. Abdomen Flat/Upright PA Chest X-ray 02/25 had shown: R perihilar plate-like atelectasis, but otherwise negative abdominal series. Patient was treated for recurrent alcoholic pancreatitis with small bowel ileus , by being made NPO, NG tube insertion, placed on IVF hydration, pain control, and started on empiric antibiotic therapy. He was started on ceftazidime to cover broad-spectrum pathogens. Patient also was treated for lactic acidosis with anion gap. This had resolved with IVF. For alcohol withdrawal, patient was treated with folic acid, thiamine, multivitamins, serax and ativan PRN anxiety/ agitation together due to patient using opiates for pain management. Patient had hyponatremia which also improved with IVF. Patient's diet was being advanced to full liquids on the day that he had left on 02/26. LFTs had also improved. Creatinine had improved. Leukocytosis also resolved and was likely reactive or due to stress demargination. DVT ppx was provided with subcutaneous heparin. NG tube was discontinued. Patient was at least known to have passed flatus the day before. He was placed on laxatives. Seems that patient was placed on full liquids diet and had passed 1 bowel movement on 02/26 prior to leaving. Unfortunately, I was unable to see the patient prior to him leaving against medical advice. I was told that he had signed AMA paperwork with the nursing transmission supervisor. He had initially left on the morning of 02/26 on his own and was found on a local street in [place] by nurse who chased after him, and was brought back to the hospital with the nurse with the help of the police department. He then signed the paperwork at the hospital and left AMA. Progress note on date of discharge: Subjective: Patient was unable to be seen and examined today as he had left against medical advice prior to my being able to see him unfortunately. Objective: Vitals: Please see below. Patient seems to have had 1 bowel movement documented on 02/26 finally. Labs: Remarkable for K 3.3, Cr 0.66, glucose 120, albumin 2.9, lipase 448, hgb 12.8, hct 37. Assessment: 31 yo M presented for acute alcoholic pancreatitis, alcohol withdrawal, small bowel ileus, and fatty infiltrate of the liver likely related to EtOH, lactic acidosis, leukocytosis, and mild CLARISSA. Disposition: Not fully medically stable for discharge and had left against medical advice, but had capacity to make that decision. Follow-up: Recommend for him to follow up with PCP Fernanda Serrato regularly on an outpatient basis within 1 week. Activity: Would have recommended for him to continue resting until he was physically and mentally well enough to go back to his home/work life. Diet: Would have recommended as tolerated and to slowly advance from full liquids to regular when he can. Medications on discharge: None as patient left AMA. Unable to provide discharge medications. Cc: PCP Fernanda Serrato Time spent on discharge: Left AMA, did not discharge. Vital Signs/I&Os Vital Signs Date Time Temp Pulse Resp B/P (MAP) Pulse Ox O2 Delivery O2 Flow Rate FiO2 02/26/17 06:00 97.9 65 17 143/89 (107) 98 Room Air 02/25/17 04:00 I&O- Last 24 Hours up to 6 AM 02/27/17 06:00 Output Total 400 ml Balance -400 ml Laboratory Data Labs 24H Laboratory Tests 2 02/26/17 05:46: White Blood Count 7.8, Red Blood Count 4.26L, Hemoglobin 12.8L, Hematocrit 37.0L , Mean Corpuscular Volume 86.8, Mean Corpuscular Hemoglobin 30.0, Mean Corpuscular Hemoglobin Concent 34.6, Red Cell Distribution Width 13.3, Platelet Count 215, Neutrophils (%) (Auto) 61.3, Lymphocytes (%) (Auto) 25.1, Monocytes ( %) (Auto) 7.1H, Eosinophils (%) (Auto) 2.1, Basophils (%) (Auto) 0.5, Neutrophils # (Auto) 4.8, Lymphocytes # (Auto) 2.0, Monocytes # (Auto) 0.6, Eosinophils # (Auto) 0.2, Basophils # (Auto) 0.0, Large Unclassified Cells % 3.9 , Large Unclassified Cells # 0.3, Anion Gap 11, Glomerular Filtration Rate > 60.0, Blood Urea Nitrogen 7, Creatinine 0.66L, Sodium Level 139, Potassium Level 3.3L, Chloride Level 106, Carbon Dioxide Level 22, Calcium Level 8.1L, Aspartate Amino Transf (AST/SGOT) 33, Alanine Aminotransferase (ALT/SGPT) 41, Alkaline Phosphatase 109, Total Bilirubin 0.6, Total Protein 7.2, Albumin 2.9L, Magnesium Level 2.4, Albumin/Globulin Ratio 0.67L, Lipase 448H CBC/BMP Laboratory Tests 02/26/17 05:46 Red Blood Count 4.26 L, Mean Corpuscular Volume 86.8, Mean Corpuscular Hemoglobin 30.0, Mean Corpuscular Hemoglobin Concent 34.6, Red Cell Distribution Width 13.3, Neutrophils (%) (Auto) 61.3, Lymphocytes (%) (Auto) 25.1, Monocytes (%) (Auto) 7.1 H, Eosinophils (%) (Auto) 2.1, Basophils (%) ( Auto) 0.5, Neutrophils # (Auto) 4.8, Lymphocytes # (Auto) 2.0, Monocytes # (Auto ) 0.6, Eosinophils # (Auto) 0.2, Basophils # (Auto) 0.0, Calcium Level 8.1 L, Aspartate Amino Transf (AST/SGOT) 33, Alanine Aminotransferase (ALT/SGPT) 41, Alkaline Phosphatase 109, Total Bilirubin 0.6, Total Protein 7.2, Albumin 2.9 L Microbiology Microbiology 02/22/17 Blood Culture - Preliminary, Resulted No Growth after 72 hours. All specime... 02/22/17 Blood Culture - Preliminary, Resulted No Growth after 72 hours. All specime... 02/22/17 Urine Culture - Final, Complete Discharge Medications No Active Prescriptions or Reported Meds Allergies Coded Allergies: No Known Allergies (Unverified , 02/22/17) GME ATTESTATION GME ATTESTATION My preceptor for this patient encounter was Dr. Cecille Guzman, and was physically present in the building during the encounter and was fully available. As needed, all aspects of the patient interview, examination, medical decision making process, and medical care plan development were reviewed and approved by the preceptor. Preceptor is aware and concurs with the plan as stated in the body of this note and will attest to such by his/her cosignature. MARIA DE JESUS DONAHUE OGME-1 Feb 27, 2017 03:57
== END 2017-02-26 09:13 | disposition left against medical advice (07) | DRG 282 ==
LOC: M ED 16:08 → M ED INP 19:14 → M PCU 20:35 → M MSPAV 02-25 23:30
PROVIDERS: ADMIT Internal Medicine; ATTEND Hospitalist
DX: K85.20 Alcohol induced acute pancreatitis without necrosis or infection (principal); E87.2 Acidosis; K56.7 Ileus, unspecified; K70.0 Alcoholic fatty liver; F10.239 Alcohol dependence with withdrawal, unspecified; E87.1 Hypo-osmolality and hyponatremia; F41.9 Anxiety disorder, unspecified; E87.6 Hypokalemia; K59.00 Constipation, unspecified; Z86.11 Personal history of tuberculosis; K86.0 Alcohol-induced chronic pancreatitis

== ENCOUNTER 2017-07-01 14:59 | Outpatient (RCR) | payer MEDICAID | END 2017-07-10 | LOC: M OUTALCOH 14:59 | DX: F10.20 Alcohol dependence, uncomplicated (principal) ==

== ENCOUNTER 2017-07-12 12:49 | Outpatient (RCR) | payer MEDICAID | END 2017-08-10 | LOC: M OUTALCOH 07-14 14:00 | DX: F10.20 Alcohol dependence, uncomplicated (principal) ==

== ENCOUNTER 2019-01-23 14:18 | Inpatient (IN) | payer MEDICAID, OTHER, SELFPAY ==
[~2019-01-23] VITALS: Ht 170.2 cm; Wt 59.0 kg
[2019-01-23 15:06] LABS: HEMATOCRIT 43.1 % (42.0-52.0); HEMOGLOBIN 14.5 g/dl (13.5-17.5); MEAN CORPUSCULAR HEMOGLOBIN 29.2 pg (27.0-33.0); MEAN CORPUSCULAR HGB CONC 33.6 g/dl (32.0-36.5); MEAN CORPUSCULAR VOLUME 86.9 fl (80.0-96.0); PLATELET COUNT, AUTOMATED 292 10^3/uL (150-450); RED BLOOD COUNT 4.96 10^6/uL (4.30-6.10); WHITE BLOOD COUNT 6.4 10^3/uL (4.0-10.0)
[2019-01-23 15:37] LABS: ACETAMINOPHEN LEVEL < 2.0 UG/ML (10.0-30.0); ALBUMIN 4.3 GM/DL (3.2-5.2); ALT/SGPT 65 U/L (12-78); BILIRUBIN,DIRECT 0.1 MG/DL (0.0-0.2); BILIRUBIN,TOTAL 0.3 MG/DL (0.2-1.0); BLOOD UREA NITROGEN 17 MG/DL (7-18); CALCIUM LEVEL 9.3 MG/DL (8.5-10.1); CARBON DIOXIDE LEVEL 25 MEQ/L (21-32); CHLORIDE LEVEL 106 MEQ/L (98-107); CREATININE FOR GFR 0.93 MG/DL (0.70-1.30); ETHYL ALCOHOL (ETHANOL) < 0.003 % (0.000-0.010); GLOMERULAR FILTRATION RATE > 60.0 (>60); GLUCOSE, FASTING 93 MG/DL (70-100); POTASSIUM SERUM 4.8 MEQ/L (3.5-5.1); SALICYLATE LEVEL 1.9 MG/DL (5.0-30.0); SODIUM LEVEL 140 MEQ/L (136-145); THYROID STIMULATING HORMONE 0.861 uIU/ML (0.358-3.740); TOTAL PROTEIN 7.7 GM/DL (6.4-8.2)
[2019-01-23 17:49] LABS: AMPHETAMINES LEVEL URINE NEGATIVE (NEGATIVE); BARBITURATES URINE NEGATIVE (NEGATIVE); BENZODIAZEPINES URINE NEGATIVE (NEGATIVE); CANNABINOIDS URINE POSITIVE (NEGATIVE); COCAINE METABOLITE URINE NEGATIVE (NEGATIVE); METHADONE URINE NEGATIVE (NEGATIVE); OPIATES URINE NEGATIVE (NEGATIVE); PHENCYCLIDINE URINE NEGATIVE (NEGATIVE)
[2019-01-23] MEDS ORDERED: LORazepam 2 MG TAB PO STA (18:55)
[2019-01-24] MEDS ORDERED: MAALOX 30 ML SUSP *UDC PO PRN (13:15)
[2019-01-24] MEDS ORDERED: MOM 30ML SUSPENSION UDC PO PRN (13:15)
[2019-01-24] MEDS ORDERED: ACETAMINOPHEN TAB 650MG DOSE (2X325MG) PO PRN (13:15)
[2019-01-24 14:10] VITALS: BP 128/74
[2019-01-24] MEDS: NICOTINE POLACRILEX 2 MG GUM PO PRN (19:07)
[2019-01-25] MEDS: traZODone 50 MG TAB PO PRN ×2 (01:36→21:49)
[2019-01-25 06:25] VITALS: BP 118/61
[2019-01-25] MEDS: NICOTINE POLACRILEX 2 MG GUM PO PRN ×3 (09:35→20:36)
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
--- NOTE | 2019-01-25 12:48 | HPE ---
DATE OF ADMISSION: 01/24/2019 This is a hospitalist generated history and physical for patient admitted to the inpatient mental health unit. He has a history of using IV methamphetamine. Past medical history per patient is that he had diabetes, at one point was on metformin, and apparently while hospitalized once was a sliding scale of insulin. He has not had any recent labs for this. His glucose was normal on recent testing. PHYSICAL EXAMINATION: 118/61, vital signs stable. HEENT: Unremarkable. LUNGS: Clear. HEART: Regular rhythm without murmur. ABDOMEN: Soft, nontender, no masses. No peripheral edema. Normal strength in the arms and legs. Normal distal pulses. IMPRESSION: 1. Past history of diabetes. Hemoglobin A1c ordered. Random blood sugar on 01/23 was normal. 2. Psychiatric care per psychiatry.
[2019-01-25 13:36] LABS: HEMOGLOBIN A1c 6.2 %
[2019-01-25 18:00] VITALS: BP 117/64
[2019-01-25] MEDS ORDERED: OLANZapine 5 MG TAB PO PRN (23:30)
[2019-01-26 06:34] VITALS: BP_SYST 104; BP_SYST 127; BP_DIAS 65; BP_DIAS 72
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
[2019-01-26 10:07] LABS: HEPATITIS B CORE ANTIBODY IGM NEGATIVE (NEGATIVE); HEPATITIS B SURFACE ANTIBODY POSITIVE (POSITIVE); HEPATITIS B SURFACE ANTIGEN NEGATIVE (NEGATIVE)
[2019-01-26 10:08] LABS: HEPATITIS C VIRUS ABY INDEX > 11.0 INDEX (<0.8)
== END 2019-01-26 11:30 | disposition home or self-care (01) | DRG 775 ==
LOC: M ED 14:18 → M ED INP 01-24 13:12 → M PSY 01-24 14:05
PROVIDERS: ADMIT Psychiatry & Neurology Psychiatry; ATTEND Psychiatry & Neurology Psychiatry
DX: F12.159 Cannabis abuse with psychotic disorder, unspecified (principal); Z91.14 Patient's other noncompliance with medication regimen; Z62.810 Personal history of physical and sexual abuse in childhood; Z62.811 Personal history of psychological abuse in childhood; F10.11 Alcohol abuse, in remission

== ENCOUNTER → 2019-02-08 | Outpatient (REF) | payer MEDICAID ==
[2019-02-08 17:06] LABS: ALBUMIN 4.3 GM/DL (3.2-5.2); ALT/SGPT 162 U/L (12-78); BILIRUBIN,TOTAL 0.4 MG/DL (0.2-1.0); BLOOD UREA NITROGEN 13 MG/DL (7-18); CALCIUM LEVEL 9.2 MG/DL (8.5-10.1); CARBON DIOXIDE LEVEL 28 MEQ/L (21-32); CHLORIDE LEVEL 104 MEQ/L (98-107); CHOLESTEROL LEVEL 160 MG/DL (<200); CHOLESTEROL RISK RATIO 2.424 (<5); CREATININE FOR GFR 1.24 MG/DL (0.70-1.30); GLOMERULAR FILTRATION RATE > 60.0 (>60); GLUCOSE, FASTING 95 MG/DL (70-100); HDL CHOLESTEROL 66 MG/DL (>40); LDL CHOLESTEROL 64 MG/DL (<100); NON-HDL-C 94 MG/DL; POTASSIUM SERUM 4.2 MEQ/L (3.5-5.1); SODIUM LEVEL 142 MEQ/L (136-145); TOTAL PROTEIN 7.6 GM/DL (6.4-8.2); TRIGLYCERIDES LEVEL 151 MG/DL (<150)
[2019-02-08 17:17] LABS: BASO # 0.1 10^3/uL (0.0-0.2); BASO % 0.7 % (0.0-1.0); EOS % 0.6 % (0.0-3.0); HEMATOCRIT 42.3 % (42.0-52.0); HEMOGLOBIN 14.1 g/dl (13.5-17.5); LYMPH # 2.3 10^3/uL (1.5-4.5); LYMPH % 32.9 % (24.0-44.0); MEAN CORPUSCULAR HEMOGLOBIN 30.3 pg (27.0-33.0); MEAN CORPUSCULAR HGB CONC 33.3 g/dl (32.0-36.5); MEAN CORPUSCULAR VOLUME 90.8 fl (80.0-96.0); MONO # 0.4 10^3/uL (0.0-0.8); MONO % 6.2 % (0.0-5.0); NEUTROPHILS # 4.2 10^3/uL (1.8-7.7); NEUTROPHILS % 59.3 % (36.0-66.0); PLATELET COUNT, AUTOMATED 243 10^3/uL (150-450); RED BLOOD COUNT 4.66 10^6/uL (4.30-6.10); WHITE BLOOD COUNT 7.1 10^3/uL (4.0-10.0)
[2019-02-08 17:25] LABS: HEMOGLOBIN A1c 6.3 %
[2019-02-08 17:42] LABS: INR 1.13; PROTHROMBIN TIME 14.2 SECONDS (11.8-14.0)
[2019-02-08 18:15] LABS: CHLAMYDIA DNA AMPLIFICATION NEGATIVE (NEGATIVE); GC DNA AMPLIFICATION NEGATIVE (NEGATIVE)
[2019-02-08 18:20] LABS: APPEARANCE, URINE CLEAR (CLEAR); BACTERIA, URINE AUTO NEGATIVE (NEGATIVE); BILIRUBIN, URINE AUTO NEGATIVE (NEGATIVE); BLOOD, URINE BLOOD NEGATIVE (NEGATIVE); COLOR, URINE YELLOW (YELLOW); GLUCOSE, URINE (UA) AUTO NEGATIVE (NEGATIVE); KETONE, URINE AUTO TRACE mg/dL (NEGATIVE); LEUKOCYTE ESTERASE, URINE AUTO NEGATIVE (NEGATIVE); MUCUS, URINE SMALL (NEGATIVE); NITRITE, URINE AUTO NEGATIVE (NEGATIVE); PROTEIN, URINE AUTO 1+ mg/dL (NEGATIVE); RBC, URINE AUTO 2 /HPF (0-3); SPECIFIC GRAVITY URINE AUTO 1.021 (1.002-1.035); SQUAMOUS EPITHELIAL CELL UR AU 0 /HPF (0-6); UROBILINOGEN, URINE AUTO 0.2 mg/dL (0.0-2.0); WBC, URINE AUTO 1 /HPF (0-3)
[2019-02-09 09:55] LABS: HEPATITIS B SURFACE ANTIBODY POSITIVE (POSITIVE)
[2019-02-09 10:05] LABS: HEPATITIS B SURFACE ANTIGEN NEGATIVE (NEGATIVE)
[2019-02-09 10:34] LABS: HIV 1&2 SCREEN CENTAUR NEGATIVE (NEGATIVE)
[2019-02-15 00:14] LABS: HEPATITIS A IgG TOTAL Positive (Negative); HEPATITIS B CORE ANTIBODY IGG Negative (Negative); HEPATITIS C QUANTITATION 5130 IU/mL (.); HEPATITIS C VIRUS GENOTYPE 3 (.)
== END ==
LOC: M LAB REF 16:14
PROVIDERS: ATTEND Nurse Practitioner Adult Health
DX: Z13.9 Encounter for screening, unspecified (principal)

== ENCOUNTER 2019-02-28 14:29 | Emergency (ER) | payer MEDICAID ==
[~2019-02-28] VITALS: Ht 170.2 cm; Wt 60.9 kg
[2019-02-28 15:03] VITALS: BP 137/73
[2019-02-28] MEDS ORDERED: IBUP80TA PO (15:15)
--- NOTE | 2019-02-28 16:50 | REP ---
RIGHT SHOULDER, THREE VIEWS: Three views of the right shoulder performed. There is no acute fracture or dislocation. There is severe joint space narrowing at the glenohumeral joint. There is extensive subchondral cystic change and mild to moderate subchondral sclerosis in the bony glenoid. IMPRESSION: Degenerative changes without fracture or dislocation. Electronically Signed by Antwon Hampton MD 03/02/2019 10:48 A
== END 2019-02-28 15:37 | disposition home or self-care (01) ==
LOC: M ED 14:29
DX: M79.621 Pain in right upper arm (principal); M24.411 Recurrent dislocation, right shoulder; M19.011 Primary osteoarthritis, right shoulder; M85.611 Other cyst of bone, right shoulder; Z91.89 Other specified personal risk factors, not elsewhere classified

== ENCOUNTER 2019-07-01 22:06 | Inpatient (IN) | payer MEDICAID, OTHER ==
[~2019-07-01] VITALS: Ht 170.2 cm; Wt 68.2 kg
[~2019-07-01 22:06] MED LIST: IBUP80TA PO
[2019-07-01 23:37] LABS: HEMATOCRIT 41.9 % (42.0-52.0); HEMOGLOBIN 13.8 g/dl (13.5-17.5); MEAN CORPUSCULAR HEMOGLOBIN 29.3 pg (27.0-33.0); MEAN CORPUSCULAR HGB CONC 32.9 g/dl (32.0-36.5); PLATELET COUNT, AUTOMATED 210 10^3/uL (150-450); RED BLOOD COUNT 4.71 10^6/uL (4.30-6.10); WHITE BLOOD COUNT 9.4 10^3/uL (4.0-10.0)
[2019-07-01 23:58] LABS: AMPHETAMINES LEVEL URINE NEGATIVE (NEGATIVE); BARBITURATES URINE NEGATIVE (NEGATIVE); BENZODIAZEPINES URINE NEGATIVE (NEGATIVE); CANNABINOIDS URINE POSITIVE (NEGATIVE); COCAINE METABOLITE URINE NEGATIVE (NEGATIVE); METHADONE URINE NEGATIVE (NEGATIVE); OPIATES URINE NEGATIVE (NEGATIVE); PHENCYCLIDINE URINE NEGATIVE (NEGATIVE)
[2019-07-02 00:12] LABS: ACETAMINOPHEN LEVEL < 2.0 UG/ML (10.0-30.0); ALBUMIN 4.5 GM/DL (3.2-5.2); ALT/SGPT 17 U/L (12-78); BILIRUBIN,DIRECT 0.1 MG/DL (0.0-0.2); BILIRUBIN,TOTAL 0.5 MG/DL (0.2-1.0); BLOOD UREA NITROGEN 19 MG/DL (7-18); CALCIUM LEVEL 9.2 MG/DL (8.5-10.1); CARBON DIOXIDE LEVEL 28 MEQ/L (21-32); CHLORIDE LEVEL 105 MEQ/L (98-107); CREATININE FOR GFR 0.96 MG/DL (0.70-1.30); ETHYL ALCOHOL (ETHANOL) < 0.003 % (0.000-0.010); GLOMERULAR FILTRATION RATE > 60.0 (>60); GLUCOSE, FASTING 89 MG/DL (70-100); POTASSIUM SERUM 4.2 MEQ/L (3.5-5.1); SALICYLATE LEVEL 2.1 MG/DL (5.0-30.0); SODIUM LEVEL 140 MEQ/L (136-145); TOTAL PROTEIN 7.4 GM/DL (6.4-8.2)
[2019-07-02] MEDS ORDERED: MAVY1TAB PO (01:20)
[2019-07-02] MEDS ORDERED: OLANZapine ORAL DISINTEGRATING TAB 5MG PO PRN (01:45)
[2019-07-02] MEDS ORDERED: MOM 30ML SUSPENSION UDC PO PRN (01:45)
[2019-07-02] MEDS ORDERED: traZODone 50 MG TAB PO PRN (01:45)
[2019-07-02] MEDS ORDERED: NICOTINE 21MG/24HR 1 EA TRANSDERMAL TD PRN (01:45)
[2019-07-02] MEDS ORDERED: ACETAMINOPHEN TAB 650MG DOSE (2X325MG) PO PRN (01:45)
[2019-07-02] MEDS ORDERED: MAALOX 30 ML SUSP *UDC PO PRN (01:45)
[2019-07-02] MEDS ORDERED: IBUP1TAB7 PO (02:24)
[2019-07-02 02:37] VITALS: BP 130/86
--- NOTE | 2019-07-02 09:47 | HPEPDOC ---
General Date of Admission Jul 02, 2019 at 01:31 Date of Service: Jul 02, 2019 Chief Complaint The patient is a 34-year-old male admitted with a reason for visit of Bipolar Disorder,Current Spisode Suzanne With Psycot. Source: Patient Exam Limitations: No limitations Associated Symptoms: Denies Symptoms History of Present Illness Mr. Reed is a 34 year old male admitted to the [facility] with a diagnosis of Bipolar Disorder, current episode Suzanne with Psychosis. Pt reported he had recently broken up with is girlfriend which triggered him behaving badly in public. The police were called as a result and brought him to the hospital. He denied any HI/SI at the time of the incident/episode or currently. Pt stated there were no drugs or alcohol involved in the incident. Mr. Reed has a PMHx of Alcoholic Pancreatitis - reported he abstains from all alcohol now. Currently on month and week 2 of Hep C therapy - he is compliant with the medications. Doctors believe he is doing well and he denied any adverse side effects. Pt denied any new medical issues at this time. Home Medications Scheduled Glecaprevir/Pibrentasvir (Mavyret 100-40 mg Tablet) 1 Each Tablet, 3 TAB PO DAILY, (Reported) Scheduled PRN Ibuprofen (Ibuprofen) 800 Mg Tablet, 800 MG PO Q6H PRN for PAIN, (Reported) Allergies Coded Allergies: alcohol (Verified Allergy, Unknown, states he is allergic , 01/23/19) Past Medical History Medical History Alcoholic Pancreatitis Hepatitis C Seizures Pneumonia Depression Anxiety Surgical History Reconstruction b/l arches Rotator cuff repair Family History Significant Family History: No pertinent family hx (adopted ) Social History * Smoker: Denies Alcohol: Denies Drugs: denies A-FIB/CHADSVASC A-FIB History Current/History of A-Fib/PAF?: No Current PO Anticoag Therapy: No Review of Systems Constitutional: Denies: Chills, Fever, Night Sweats Eyes: Denies: Pain, Vision change ENT: Denies: Head Aches, Ear Pain, Dysphagia Skin: Denies: Rash, Lesions, Breakdown Pulmonary: Denies: Dyspnea, Cough Cardiovascular: Denies: Chest Pain, Palpitations, Orthopnea, Paroxysmal Noc. Dyspnea, Lt Headedness Gastrointestinal: Denies: Nausea, Vomiting, Abdominal Pain, Diarrhea Genitourinary: Denies: Dysuria, Frequency, Incontinence, Retention Hematologic: Denies: Bruising, Bleeding Excessively Musculoskeletal: Denies: Neck Pain, Back Pain, Joint Pain, Muscle Pain, Spasms Neurological: Denies: Weakness, Numbness, Change in speech, Confusion Psych: Reports: Mood Normal; Denies: Depression, Memory Issues Physical Examination General Exam: Positive: Alert, Cooperative, No Acute Distress Eye Exam: Positive: PERRLA, Conjunctiva & lids normal, EOMI ENT Exam: Positive: Atraumatic, Mucous membr. moist/pink, Pharynx Normal, Tongue Midline Neck Exam: Positive: Supple; Negative: thyromegaly Chest Exam: Positive: Clear to auscultation, Normal air movement Heart Exam: Positive: Rate Normal, Normal S1, Normal S2; Negative: Gallops, Murmurs, Rubs Abdomen Exam: Positive: Normal bowel sounds, Soft; Negative: Tenderness Extremity Exam: Negative: Clubbing, Cyanosis, Edema Skin Exam: Positive: Nl turgor and temperature Neuro Exam: Positive: Normal Gait, Normal Speech Psych Exam: Positive: Mood NL Vital Signs Vital Signs Date Time Temp Pulse Resp B/P (MAP) Pulse Ox O2 Delivery O2 Flow Rate FiO2 07/02/19 02:37 97.5 54 16 130/86 (101) 99 Room Air Laboratory Data Labs 24H Laboratory Tests 2 07/01/19 23:27: Nucleated Red Blood Cells % (auto) 0.0, Anion Gap 7L, Glomerular Filtration Rate > 60.0, Calcium Level 9.2, Total Bilirubin 0.5, Direct Bilirubin 0.1, Aspartate Amino Transf (AST/SGOT) 18, Alanine Aminotransferase (ALT/SGPT) 17, Alkaline Phosphatase 81, Total Protein 7.4, Albumin 4.5, Albumin/Globulin Ratio 1.55, Thyroid Stimulating Hormone (TSH) 1.630, Salicylates Level 2.1L, Urine Opiates Screen NEGATIVE, Urine Methadone Screen NEGATIVE, Acetaminophen Level < 2.0L, Urine Barbiturates Screen NEGATIVE, Urine Phencyclidine Screen NEGATIVE, Urine Amphetamines Screen NEGATIVE, Urine Benzodiazepines Screen NEGATIVE, Urine Cocaine Metabolite Screen NEGATIVE, Urine Cannabinoids Screen POSITIVEH, Ethyl Alcohol Level < 0.003 CBC/BMP Laboratory Tests 07/01/19 23:27 Assessment/Plan Mr. Reed is a 34 year old male admitted to the [facility] with a diagnosis of Bipolar Disorder, current episode Suzanne with Psychosis. Pt reported he had recently broken up with is girlfriend which triggered him behaving badly in public. The police were called as a result and brought him to the hospital. He denied any HI/SI at the time of the incident/episode or currently. Pt stated there were no drugs or alcohol involved in the incident. Mr. Reed has a PMHx of Alcoholic Pancreatitis - reported he abstains from all alcohol now. Currently on month and week 2 of Hep C therapy - he is compliant with the medications. Doctors believe he is doing well and he denied any adverse side effects. Pt denied any new medical issues at this time. 1) Alcoholic Pancreatitis - no current symptoms - pt reported he abstains from alcohol 2) Hepatitis C - Takes Mavyret - management per GI outpatient 3) Bipolar Disorder, current episode Suzanne with Psychosis - Management per psychiatry Medicine will sign off at this time. Please re-consult about this patient as needed. Plan / VTE VTE Prophylaxis Ordered?: No DEAN BORRERO PA-C Jul 02, 2019 09:47
[2019-07-02 12:00] VITALS: BP 115/56
[2019-07-02 16:40] VITALS: BP 116/60
[2019-07-02] MEDS ORDERED: QUEtiapine FUMARATE 100 MG TAB PO SCH (21:00)
[2019-07-02 21:45] VITALS: BP 115/63
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
[2019-07-03] MEDS ORDERED: ENTER DRUG NAME HERE (PATIENT'S OWN MED) PO SCH (09:00)
[2019-07-03] MEDS ORDERED: QUET1TAB8 PO (09:58)
--- NOTE | 2019-07-05 14:32 | MHDS ---
DATE OF ADMISSION: 07/02/2019 DATE OF DISCHARGE: 07/03/2019 VITAL SIGNS: Not taken on day of discharge. LABORATORY DATA: CBC and differential within normal limits except for hematocrit of 41.9. Chemistry within normal limits except for low anion gap at 7. BUN elevated at 19. TSH within normal limits. Urine toxicology is positive for cannabinoids. Ethyl alcohol level is 0. DISCHARGE DIAGNOSES: 1. Bipolar disorder, manic, with psychotic features. 2. Alcohol and methamphetamine use disorder, in remission. 3. Cannabis use disorder. DISCHARGE MEDICATIONS: Seroquel 100 mg at bedtime CHIEF COMPLAINT: Threatening behavior in the community. 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 The patient became agitated recently after his girlfriend broke up with him and is involved with one of his coworkers. Patient was running down the street taking is clothes off, acting in a threatening manner to police. He had informed the police the day before that he was hearing voices. Patient reported to police that it was all right, that he works for the [employer] and can do whatever he wants. Patient has history of alcoholism but has been sober for 2 years. He attends Alcoholic Anonymous ([facility]). He has been clean from the methamphetamine for 6 months. He still uses cannabis on occasion but minimizes this. PROGRESS ON THE UNIT: Patient's mother was consulted, who lives out of state. She volunteered that the patient believes that a chip has been implanted in his brain and that the police can monitor his thinking and speech. He has been this way ever since he started using methamphetamine years ago. She had urged him to get on an antipsychotic. She is apparently a clinical psychologist in [place]. Patient was agreeable to this. He was placed on Seroquel 100 mg at bedtime. Patient requested discharge with outpatient mental health followup. Patient showed no signs of agitation on the unit. His behavior was appropriate. He appeared sincere and wishing to take medication and followup with outpatient mental health services. Patient's mother was contacted regarding the discharge plan and will monitor him and provide support. MENTAL STATUS EXAMINATION: At time of discharge, the patient's mood and affect appeared reasonably good. He was no longer depressed. Racing thoughts were mild. No signs of agitation. He denied having any auditory hallucinations but may be covering. No signs of paranoia or thought disorder. Grooming and hygiene were fair. No signs of impulsivity or dangerousness. No signs of cognitive deficits. ASSESSMENT: Patient appears to have reached maximal hospital benefit. Patient was educated as to the need to have appropriate medication compliance. Patient's mother will also provide support in this regard. PLAN: Discharge today to the community. [facility] to [facility] with [facility].
== END 2019-07-03 11:30 | disposition home or self-care (01) | DRG 753 ==
LOC: M ED 22:06 → M ED INP 07-02 01:31 → M PSY 07-02 02:30
PROVIDERS: ADMIT Psychiatry & Neurology Psychiatry; ATTEND Psychiatry & Neurology Addiction Medicine
DX: F30.2 Manic episode, severe with psychotic symptoms (principal); F15.11 Other stimulant abuse, in remission; F10.11 Alcohol abuse, in remission; Z79.899 Other long term (current) drug therapy; F12.10 Cannabis abuse, uncomplicated; Z63.5 Disruption of family by separation and divorce

== ENCOUNTER → 2019-08-01 | Outpatient (REF) | payer OTHER, MEDICAID ==
[~2019-08-01] MED LIST changes: +IBUP1TAB7 PO; +MAVY1TAB PO; +QUET1TAB8 PO
== END ==
LOC: M LAB REF 16:40
PROVIDERS: ATTEND Nurse Practitioner Adult Health
DX: B18.2 Chronic viral hepatitis C (principal); R73.03 Prediabetes

== ENCOUNTER 2019-11-09 09:13 | Inpatient (IN) | payer MEDICAID, OTHER ==
[~2019-11-09] VITALS: Ht 170.2 cm; Wt 62.2 kg
[~2019-11-09 09:13] MED LIST changes: +QUET100T2 PO; -QUET1TAB8 PO
[2019-11-09 09:48] LABS: HEMATOCRIT 44.6 % (42.0-52.0); MEAN CORPUSCULAR HEMOGLOBIN 29.4 pg (27.0-33.0); MEAN CORPUSCULAR HGB CONC 33.6 g/dl (32.0-36.5); MEAN CORPUSCULAR VOLUME 87.3 fl (80.0-96.0); PLATELET COUNT, AUTOMATED 245 10^3/uL (150-450); RED BLOOD COUNT 5.11 10^6/uL (4.30-6.10); WHITE BLOOD COUNT 12.4 10^3/uL (4.0-10.0)
[2019-11-09 10:11] LABS: AMPHETAMINES LEVEL URINE NEGATIVE (NEGATIVE); BARBITURATES URINE NEGATIVE (NEGATIVE); BENZODIAZEPINES URINE NEGATIVE (NEGATIVE); CANNABINOIDS URINE POSITIVE (NEGATIVE); COCAINE METABOLITE URINE NEGATIVE (NEGATIVE); METHADONE URINE NEGATIVE (NEGATIVE); OPIATES URINE NEGATIVE (NEGATIVE); PHENCYCLIDINE URINE NEGATIVE (NEGATIVE)
[2019-11-09 10:24] LABS: ACETAMINOPHEN LEVEL < 2.0 UG/ML (10.0-30.0); ALBUMIN 4.7 GM/DL (3.2-5.2); ALT/SGPT 25 U/L (12-78); BILIRUBIN,DIRECT 0.1 MG/DL (0.0-0.2); BILIRUBIN,TOTAL 0.6 MG/DL (0.2-1.0); BLOOD UREA NITROGEN 13 MG/DL (7-18); CALCIUM LEVEL 9.4 MG/DL (8.5-10.1); CARBON DIOXIDE LEVEL 25 MEQ/L (21-32); CHLORIDE LEVEL 103 MEQ/L (98-107); CREATININE FOR GFR 1.01 MG/DL (0.70-1.30); ETHYL ALCOHOL (ETHANOL) < 0.003 % (0.000-0.010); GLOMERULAR FILTRATION RATE > 60.0 (>60); GLUCOSE, FASTING 169 MG/DL (70-100); POTASSIUM SERUM 3.8 MEQ/L (3.5-5.1); SALICYLATE LEVEL 4.5 MG/DL (5.0-30.0); SODIUM LEVEL 137 MEQ/L (136-145); TOTAL PROTEIN 7.9 GM/DL (6.4-8.2)
[2019-11-09] MEDS ORDERED: OLANZapine ORAL DISINTEGRATING TAB 5MG PO PRN (16:15)
[2019-11-09] MEDS ORDERED: IBUPROFEN 400 MG TAB PO PRN (16:15)
[2019-11-09] MEDS ORDERED: MOM 30ML SUSPENSION UDC PO PRN (16:15)
[2019-11-09] MEDS ORDERED: MAALOX 30 ML SUSP *UDC PO PRN (16:15)
[2019-11-09] MEDS ORDERED: traZODone 50 MG TAB PO PRN (16:15)
[2019-11-10 06:23] VITALS: BP 137/84
[2019-11-10 16:30] VITALS: BP 119/58
[2019-11-10] MEDS ORDERED: ARIPiprazole 2 MG TAB PO SCH (21:00)
[2019-11-11 05:59] VITALS: BP 115/58
[2019-11-11 16:26] VITALS: BP 110/78
--- NOTE | 2019-11-11 16:40 | HPEPDOC ---
[facility] Medical History & Physical Date of Admission November 11, 2019 Date of Service: November 11, 2019 History and Physical CHIEF COMPLAINT: Admitted to inpatient mental health unit for psychosis HISTORY OF PRESENT ILLNESS: 34-year-old male is currently admitted to inpatient mental health unit for psychosis. He reports that he has had difficulty sleeping and increased anxiety over the past few days, one to the police station because he wanted to be a copy and that brought him to the hospital. He is without any complaints at this time, doesn't know why he had to be admitted here. He denies any shortness of breath, chest pain, nausea, vomiting, abdominal pain, diarrhea or constipation. He denies having any previous medical or psychiatric history. He denies taking any medications at home at this time. 10 point review of systems negative except for above PAST MEDICAL HISTORY: 1. None. PAST SURGICAL HISTORY: 1. Bilateral foot/right shoulder surgery. SOCIAL HISTORY: Denies smoking cigarettes. Denies alcohol use. Smokes marijuana FAMILY HISTORY: Denies family history of cancer or heart disease ALLERGIES: Please see below. HOME MEDICATIONS: Please see below. PHYSICAL EXAMINATION: VITAL SIGNS: Please see below. GENERAL: No distress HEENT: Normocephalic, atraumatic, moist mucous membranes NECK: Supple CARDIOVASCULAR EXAMINATION: S1, S2, no murmurs RESPIRATORY EXAMINATION: Clear to auscultation, no wheezing ABDOMINAL EXAMINATION: Soft, nontender, nondistended, positive bowel sounds EXTREMITIES: Range of motion intact SKIN: No rash NEUROLOGICAL EXAMINATION: Alert and oriented 3, no focal deficits PSYCHIATRIC EXAMINATION: Calm and cooperative LABORATORY DATA: See below. MICROBIOLOGY: Please see below. ASSESSMENT: 34-year-old male with no significant past medical history is admitted to inpatient mental health unit for psychosis. PLAN: 1. Psychosis. Management as per primary team Patient has no active medical issues at this time, please reconsult as needed. Vital Signs Vital Signs Date Time Temp Pulse Resp B/P (MAP) Pulse Ox O2 Delivery O2 Flow Rate FiO2 11/11/19 16:26 98.4 87 18 110/78 (89) 11/11/19 05:59 99 Room Air Home Medications Scheduled PRN Ibuprofen (Ibuprofen) 800 Mg Tablet, 800 MG PO Q6H PRN for PAIN Allergies Coded Allergies: No Known Allergies (Verified Allergy, Unknown, 11/09/19) A-FIB/CHADSVASC A-FIB History Current/History of A-Fib/PAF?: No ROBERT TERAN MD November 11, 2019 16:40
[2019-11-12 06:24] VITALS: BP 152/97
--- NOTE | 2019-11-12 08:34 | MHHPE ---
TELEMEDICINE VIDEO EVALUATION Done in the presence of staff. He is in the inpatient unit. DATE OF ADMISSION: 11/09/2019 CHIEF COMPLAINT: Feels upset. SUBJECTIVE: Says , has history of bipolar disorder, manic with ricardo, with psychotic features in the past, as well as alcohol and methamphetamine use disorder and cannabis use disorder. Has had previous hospitalizations, and was last here just before 2018, was seen by Dr. Barron, please refer to the discharge summary for details related to the circumstances of that admission, the patient is quite agitated, after his girlfriend had broken up with him. Says has not seen anybody in essence after discharge, and that he may have seen somebody, a clinician, for a brief period, and then he discontinued treatment. Says has not been on any psychotropics or any medications, does not think that he needs them. 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 When asked to elaborate, suggests that they said he was talking loudly, and that that was their response. He says he has trouble with sleep on occasions, moods have also been generally good, possibly more anxious lately, but is somewhat vague. The notes from the ER state that the patient thought that the [employer] had put a chip in him and they were able to listen to his thoughts, he says he does not think so, says this was made up by others and that if that were the case then the FBI would have to have performed surgery on him. Says he has thought in the past of becoming an [employer] agent, and also a therapist. 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 PAST PSYCHIATRIC HISTORY: He has had previous hospitalizations, please refer to previous summaries. Has not essentially followed up with treatment recommendations. SUBSTANCE ABUSE HISTORY: Has history of substance history, and most recently has been smoking cannabis, toxicology was positive for that. BACKGROUND HISTORY/MEDICAL HISTORY: Please refer to the previous summaries. MENTAL STATUS EXAMINATION: Fairly neat. He is cooperative. No agitation. No psychomotor retardation. No abnormal movements noted. He is coherent. Speech currently normal in amount and rate. Affect fairly broad. Denies any thoughts of harming himself or anyone else. Does not appear to be internally preoccupied. Has delusions, mostly of grandiosity, no fluctuations of consciousness. He is alert and oriented to time, place and person. Intellect average. Judgment and insight are quite questionable. ASSESSMENT: Bipolar disorder, current episode possibly manic, with psychotic features. Cannabis use disorder. Consider substance use ricardo as well, though it is quite possible that his mood fluctuations are not completely dependent on substance misuse. VITAL SIGNS: Blood pressure 119/58. Pulse 78. Temperature 98.8. LABORATORY DATA: Metabolic profile essentially within normal limits, except for a slight rise in the glucose at 169. White cell count is essentially within normal limits, except for white cell count slightly high at 12.4. PLAN: He is admitted to the inpatient psychiatry unit and placed on relevant precautions. Will look at obtaining collateral information, and he would potentially benefit from using a mood stabilizer, such as an atypical antipsychotic, to help with these mood fluctuations. However, it will be even more useful if he did not misuse any substances or drugs, which will further exacerbate his moods. He will receive a medicine consult if indicated. We will involve him in individual, group and milieu therapy. He will be discharged with followup once he is stable. I would anticipate a 5-7 day stay. The assessment took 30 minutes.
--- NOTE | 2019-11-12 09:13 | MHIPNPDOC ---
[facility] Progress Note Progress Note Inpatient Progress Note Calos Reed MRN: N/A Date of : N/A Date of Service: 11/12/2019 History of Present Illness The patient is a 34-year-old man presents after using various substances. Presenting distorted and a danger to himself. Interval History The patient is met with today. He is doing well and has been tolerating the medications such as Abilify with no issues. He reports he is doing much better and is interested in perhaps leaving. He reports that he feels much improved and that he has been cooperating while in treatment. No behavioral problems overnight Review Of Systems General: Denies fever or appetite changes Cardiovascular: Denies Chest pain or palpations GI: Denies Nausea, vomiting, or bowel changes Respiratory: Denies shortness of breath or cough Neuro: Denies dizziness, tremors Derm: Denies any rashes or pruritus : Denies any dysuria or urinary problems MSK: Denies any muscle tightness or stiffness HEENT: Denies any vision changes or headaches Psychotherapy None on this visit. Vital Signs Reviewed. Mental Status Examination General: Well dressed with good hygiene Speech: Spontaneous and fluid Thought processes: Linear and logical MSK: Smooth and coordinated gait, no signs of tremors or involuntary orofacial movements Thought content: Future orientated Abstract reasoning, and computation: Intact Description of associations: Intact Description of abnormal or psychotic thoughts: Denies any suicidal or homicidal ideation. Denies any auditory or visual hallucinations. Does not appear to be responding to internal stimuli. Does not appear to be endorsing any bizarre or paranoid ideation. Judgment: fair Insight: fair Orientation: Alert and orientated 3 Cognition: Grossly normal Recent and remote memory: Intact Attention span and concentration: Intact Fund of knowledge: Adequate Mood: "okay" Affect: Euthymic with a full range Diagnoses Unspecified psychotic disorder Polysubstance abuse Assessment and Plan Unspecified psychotic disorder: Continue Abilify 5 mg daily Polysubstance abuse: recommend outpatient treatment Disposition Patient will be monitored overnight and discharged once appropriate discharge plans are made. Time Spent 15 minutes Tuesday Vital Signs Vital Signs Date Time Temp Pulse Resp B/P (MAP) Pulse Ox O2 Delivery O2 Flow Rate FiO2 11/12/19 06:24 98.2 89 12 152/97 (115) 97 Room Air Current Medications Current Medications Medications (Trade) Dose Ordered Sig/Jesse Route PRN Reason Start Time Stop Time Status Last Admin Dose Admin Al Hydrox/Mg Hydrox/Simethicone (Mylanta) 30 ml Q4HP PRN PO HEARTBURN/INDIGESTION 11/09/19 16:15 Aripiprazole (AbiLIFY) 2 mg QHS PO 11/10/19 21:00 11/11/19 14:30 DC 11/10/19 21:58 Aripiprazole (AbiLIFY) 5 mg QHS PO 11/11/19 21:00 11/11/19 21:14 Home Med (Med Rec Complete!) ASDIRECTED XX 11/09/19 12:15 11/09/19 12:13 DC Ibuprofen (Advil) 400 mg Q6HP PRN PO PAIN 11/09/19 16:15 Magnesium Hydroxide (Milk Of Magnesia) 30 ml DAILYPRN PRN PO CONSTIPATION 11/09/19 16:15 Olanzapine (ZyPREXA ZYDIS) 5 mg Q4HP PRN PO AGITATION 11/09/19 16:15 Trazodone HCl (Desyrel) 50 mg QHSP PRN PO INSOMNIA 11/09/19 16:15 Allergies Coded Allergies: No Known Allergies (Verified Allergy, Unknown, 11/09/19) BRISSA DIAZ DO November 12, 2019 09:13
[2019-11-12 15:39] VITALS: BP 122/65
[2019-11-13 06:19] VITALS: BP 139/63
--- NOTE | 2019-11-13 09:46 | MHDSPDOC ---
[facility] Discharge Summary Discharge Summary DATE OF ADMISSION: November 09, 2019 at 16:02 DATE OF DISCHARGE: 11/13/19 Discharge Calos Reed MRN: N/A Date of : N/A Date of Service: 11/13/2019 Diagnoses Unspecified psychotic disorder Polysubstance abuse History of Present Illness The patient is a 34-year-old man presents after using various substances. Presenting distorted and a danger to himself. Consultants Involved Hospitalist/PCP screening Treatment and Progress On The Unit The patient was admitted to the inpatient mental health unit. He was put on appropriate treatment and primarily treated supportive. He resolved well without major interventions suggesting a substance-induced psychosis. He improved well and by the time his provider had seen him he was much more amenable and applicable with no signs of psychosis. He did not have significant behavioral problems and generally resolved quite well with low level support. Discharge Assessment 34-year-old man with a history of substance induced psychosis presents after likely using and becoming psychotic. He does well on the unit with supportive t reatment and requests discharge after his psychosis resolves. The patient at the time of discharge did not meet criteria for involuntary admission/extension due to having a normal mental status exam, fair insight into the situation, They are engaged in the discharge process, as well as being friendly and amenable in behavioral control and havent been engaging in any observed concerning behavior or ideation recently. They decline voluntary extension/admission at this time and must be discharged in good yony, as Im unable to make a case for holding the patient against their will. They may have historical risk factors of admissions and other interactions with psychiatry however, those are not modifiable from a clinical perspective. The patient will need to be discharged in good yony. Mental Status Examination General: Well dressed with good hygiene Speech: Spontaneous and fluid Thought processes: Linear and logical MSK: Smooth and coordinated gait, no signs of tremors or involuntary orofacial movements Thought content: Future orientated Abstract reasoning, and computation: Intact Description of associations: Intact Description of abnormal or psychotic thoughts: Denies any suicidal or homicidal ideation. Denies any auditory or visual hallucinations. Does not appear to be responding to internal stimuli. Does not appear to be endorsing any bizarre or paranoid ideation. Judgment: fair Insight: fair Orientation: Alert and orientated 3 Cognition: Grossly normal Recent and remote memory: Intact Attention span and concentration: Intact Fund of knowledge: Adequate Mood: "okay" Affect: Euthymic with a full range Follow Up The social work team worked during the predischarge meeting in order to evaluate for further issues of lethality address them fully before discharge. They worked on safety planning with the patient's family members in order to ensure that the patient will have a safe and effective discharge. Time Spent The amount of time spent in the coordination of care for this patient was approximately 45 minutes. Tuesday Vital Signs/I&Os Vital Signs Date Time Temp Pulse Resp B/P (MAP) Pulse Ox O2 Delivery O2 Flow Rate FiO2 11/13/19 06:19 97.8 68 14 139/63 (88) 98 Room Air Medications Scheduled Aripiprazole (Abilify) 5 Mg Tablet, 5 MG PO QHS for mood for 7 Days, #7 Allergies Coded Allergies: No Known Allergies (Verified Allergy, Unknown, 11/09/19) BRISSA DIAZ DO November 13, 2019 09:46
[2019-11-13] MEDS ORDERED: ABIL1TAB11 PO (10:12)
--- NOTE | 2019-11-13 14:29 | MHIPN ---
DATE: 11/11/2019 VITAL SIGNS: Blood pressure 115/58. Pulse 91. Temperature 97.9. This is a telemedicine video followup assessment. CHIEF COMPLAINT: Says feels good. SUBJECTIVE: Seen for followup, in the presence of staff. Says feels good and that he slept reasonably well. Says does not do well when he does not sleep, there are times when he does not sleep for nights on end. 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 He denies that he has been suicidal. Says has been considering his future, but did not go into details. MENTAL STATUS EXAMINATION: Neat. Cooperative, though somewhat superficially so. No agitation. No psychomotor retardation. Displays mild irritability. Coherent for the most part. Affect reactive. Denies any suicidal thoughts or intents. No homicidal ideas or intents. Though no overt delusions are elicited, concerns are that they are under the surface, including these ideas that a chip had been planted in his brain by the FBI. Cognition grossly intact. Judgment and insight remain compromised. Less anxious, possibly less grandiose than when he first camein. PLAN: Continue current care, has been started on the Abilify, and we will look at increasing to 5 mg at night. Would also suggest attempting to obtain collateral information. He will be seeing the assigned psychiatrist tomorrow, when further recommendations will be made.
== END 2019-11-13 12:10 | disposition home or self-care (01) | DRG 776 ==
LOC: M ED 09:13 → M ED INP 16:02 → M PSY 17:57
PROVIDERS: ADMIT Psychiatry & Neurology Addiction Medicine; ATTEND Psychiatry & Neurology Addiction Medicine
DX: F19.159 Other psychoactive substance abuse with psychoactive substance-induced psychotic disorder, unspecified (principal); F29 Unspecified psychosis not due to a substance or known physiological condition; F12.10 Cannabis abuse, uncomplicated

== ENCOUNTER → 2023-05-30 | Outpatient (CLI) | payer OTHER ==
[~2023-05-30] MED LIST changes: +ABIL1TAB11 PO
== END ==
LOC: M WUC 11:11
PROVIDERS: ATTEND Nurse Practitioner Family
DX: R76.11 Nonspecific reaction to tuberculin skin test without active tuberculosis (principal)